=== PATIENT | female | born 1950 | race Caucasian/White ===

== ENCOUNTER 2016-07-02 23:55 | Inpatient (IN) | payer MEDICARE, OTHER ==
[2016-07-03] MEDS ORDERED: HYDROmorphone 1 MG/ML SYRINGE IVP STA (01:53)
[2016-07-03] MEDS ORDERED: ONDANSETRON 4 MG/2 ML VIAL IVP STA ×2 (01:53→08:21)
[2016-07-03] MEDS ORDERED: SODIUM CHLORIDE 0.9% 1,000 ML IV STA (01:53)
[2016-07-03] MEDS ORDERED: HYDROmorphone 1 MG/ML SYRINGE ONE ×3 (01:58→20:07)
[2016-07-03] MEDS ORDERED: ONDANSETRON 4 MG/2 ML VIAL ONE ×2 (01:58→08:24)
[2016-07-03] MEDS: HYDROmorphone 1 MG/ML SYRINGE IVP STA ×2 (03:40→20:12)
[2016-07-03] MEDS ORDERED: IOPAMIDOL-300 100 ML VIAL IVP ONE (07:43)
[2016-07-03] MEDS ORDERED: MORPHINE 2 MG/ML SYRINGE IVP STA (08:21)
[2016-07-03] MEDS ORDERED: MORPHINE 2 MG/ML SYRINGE ONE (08:24)
[2016-07-03] MEDS ORDERED: PIPERACILLIN/TAZOBACTAM 3.375 GM in SODIUM CHLORIDE 0.9% MINIBAG 100 ML IV STA (09:16)
[2016-07-03] MEDS ORDERED: LACTATED RINGERS 1,000 ML IV ONE ×4 (11:01→14:20)
[2016-07-03] MEDS ORDERED: SODIUM CHLORIDE FLUSH 0.9% 10 ML SYRINGE IVP PRN (11:03)
[2016-07-03] MEDS ORDERED: BUPIVACAINE 0.5% PF 30 ML VIAL SUBQ ONE (11:52)
[2016-07-03] MEDS ORDERED: ROPIVACAINE 0.2% PF 10 ML VIAL EPI ONE (12:00)
[2016-07-03] MEDS ORDERED: LIDOCAINE 1% 50 ML MDV SUBQ ONE (12:00)
[2016-07-03] MEDS ORDERED: ePHEDrine 50 MG/ML VIAL IVP ONE (12:00)
[2016-07-03] MEDS ORDERED: PHENYLEPHRINE 50 MG/5 ML VIAL IV ONE (12:00)
[2016-07-03] MEDS ORDERED: PROPOFOL 200 MG/20 ML VIAL IVP ONE (12:00)
[2016-07-03] MEDS ORDERED: SUCCINYLCHOLINE 200 MG/10 ML VIAL IVP ONE (12:00)
[2016-07-03] MEDS ORDERED: ONDANSETRON 4 MG/2 ML VIAL IVP ONE (12:00)
[2016-07-03] MEDS ORDERED: fentaNYL 250 MCG/5 ML VIAL IVP ONE (12:00)
[2016-07-03] MEDS ORDERED: DEXAMETHASONE 4 MG/ML VIAL IVP ONE (12:00)
[2016-07-03] MEDS ORDERED: GLYCOPYRROLATE 1 MG/5 ML VIAL IVP ONE (12:00)
[2016-07-03] MEDS ORDERED: MIDAZOLAM 2 MG/2 ML VIAL IVP ONE (12:00)
[2016-07-03] MEDS ORDERED: ROCURONIUM 50 MG/5 ML VIAL IVP ONE (12:00)
[2016-07-03] MEDS ORDERED: NEOSTIGMINE 1 MG/1 ML 10 ML MDV IVP ONE (12:00)
[2016-07-03] MEDS ORDERED: SODIUM CHLORIDE 0.9% 1,000 ML IV SCH (12:30)
[2016-07-03] MEDS ORDERED: diphenhydrAMINE INJ 50 MG/ML VIAL IV PRN (13:08)
[2016-07-03] MEDS ORDERED: METOCLOPRAMIDE 10 MG/2 ML VIAL IVP PRN (13:08)
[2016-07-03] MEDS ORDERED: ONDANSETRON 4 MG/2 ML VIAL IVP PRN (13:08)
[2016-07-03] MEDS ORDERED: NALBUPHINE 20 MG/ML AMP IVP PRN (13:08)
[2016-07-03] MEDS ORDERED: SUFENTA/BUPIV 0.4 MCG/0.0625% 150 ML EP PRN (13:08)
[2016-07-03] MEDS ORDERED: SUFENTA/BUPIV 0.4 MCG/0.0625% 150 ML EP ONE (13:34)
[2016-07-03] MEDS ORDERED: SODIUM CHLORIDE FLUSH 0.9% 10 ML SYRINGE IVP SCH (14:00)
[2016-07-03] MEDS ORDERED: A & D OINTMENT 5 GM PACKET TOP ONE (15:54)
[2016-07-03] MEDS: PHENOL THROAT SPRAY 177 ML MM PRN (18:02)
[2016-07-03] MEDS: D5NS W/20 MEQ KCL 1,000 ML IV SCH (18:08)
[2016-07-03] MEDS: PIPERACILLIN/TAZOBACTAM 3.375 GM in SODIUM CHLORIDE 0.9% MINIBAG 100 ML IV SCH ×2 (18:08→23:44)
[2016-07-03] MEDS: SODIUM CHLORIDE FLUSH 0.9% 10 ML SYRINGE IVP SCH ×2 (18:09→23:22)
[2016-07-03] MEDS: PANTOPRAZOLE 40 MG VIAL IVP SCH (18:09)
[2016-07-03] MEDS ORDERED: fentaNYL 100 MCG/2 ML VIAL ONE (20:42)
[2016-07-03] MEDS ORDERED: HYDROmorphone 1 MG/ML SYRINGE IVP SCH (21:08)
[2016-07-03] MEDS ORDERED: SODIUM CHLORIDE 0.9% 500 ML IV PRN (21:11)
[2016-07-03] MEDS ORDERED: ROPIVACAINE 0.5% PF 20 ML AMPULE EP ONE (21:20)
[2016-07-03] MEDS: ACETAMINOPHEN 1,000 MG/100 ML 100 ML IV SCH (21:20)
[2016-07-03] MEDS ORDERED: LIDOCAINE-MPF 2% 5 ML VIAL IM ONE (21:20)
[2016-07-03] MEDS ORDERED: ROPIVACAINE PO SCH (22:00)
[2016-07-03] MEDS ORDERED: FENTANYL PO SCH (22:00)
[2016-07-04] MEDS: ACETAMINOPHEN 1,000 MG/100 ML 100 ML IV SCH ×4 (02:54→21:39)
[2016-07-04] MEDS: D5NS W/20 MEQ KCL 1,000 ML IV SCH ×3 (03:02→20:41)
[2016-07-04] MEDS: SODIUM CHLORIDE FLUSH 0.9% 10 ML SYRINGE IVP SCH ×3 (06:21→21:40)
[2016-07-04] MEDS: PANTOPRAZOLE 40 MG VIAL IVP SCH (06:21)
[2016-07-04] MEDS: PIPERACILLIN/TAZOBACTAM 3.375 GM in SODIUM CHLORIDE 0.9% MINIBAG 100 ML IV SCH ×3 (06:21→19:20)
[2016-07-04] MEDS: PHENOL THROAT SPRAY 177 ML MM PRN (08:26)
[2016-07-04] MEDS ORDERED: NALBUPHINE 20 MG/ML AMP IVP PRN (10:58)
[2016-07-04] MEDS ORDERED: diphenhydrAMINE INJ 50 MG/ML VIAL IVP PRN (10:58)
[2016-07-04] MEDS: SUFENTA/ROPIV 0.5 MCG/0.2% 150 ML EP PRN (11:20)
[2016-07-04] MEDS ORDERED: SODIUM CHLORIDE 0.9% 100ML 100 ML IV ONE (19:11)
[2016-07-05] MEDS: ACETAMINOPHEN 1,000 MG/100 ML 100 ML IV SCH ×4 (02:59→20:16)
[2016-07-05] MEDS: SUFENTA/ROPIV 0.5 MCG/0.2% 150 ML EP PRN ×2 (05:27→19:31)
[2016-07-05] MEDS: D5NS W/20 MEQ KCL 1,000 ML IV SCH ×3 (05:30→23:41)
[2016-07-05] MEDS: SODIUM CHLORIDE FLUSH 0.9% 10 ML SYRINGE IVP SCH ×3 (06:13→20:17)
[2016-07-05] MEDS: PANTOPRAZOLE 40 MG VIAL IVP SCH (06:13)
[2016-07-05] MEDS: SODIUM CHLORIDE FLUSH 0.9% 10 ML SYRINGE IVP PRN (11:50)
[2016-07-06] MEDS: ACETAMINOPHEN 1,000 MG/100 ML 100 ML IV SCH ×4 (02:55→20:21)
[2016-07-06] MEDS: SODIUM CHLORIDE FLUSH 0.9% 10 ML SYRINGE IVP SCH ×3 (06:35→22:20)
[2016-07-06] MEDS: PANTOPRAZOLE 40 MG VIAL IVP SCH (06:35)
[2016-07-06] MEDS: SUFENTA/ROPIV 0.5 MCG/0.2% 150 ML EP PRN ×2 (08:41→22:07)
[2016-07-06] MEDS ORDERED: BARIUM SULFATE 176 GM BOTTLE PO ONE (10:58)
[2016-07-06] MEDS ORDERED: DIATR MEGLU/DIATRIZOATE SODIUM 120 ML BOTTLE PO ONE (10:58)
[2016-07-06] MEDS: D5NS W/20 MEQ KCL 1,000 ML IV SCH ×2 (15:56→22:20)
[2016-07-06] MEDS: ONDANSETRON 4 MG/2 ML VIAL IVP PRN (20:22)
[2016-07-07] MEDS: ACETAMINOPHEN 1,000 MG/100 ML 100 ML IV SCH ×4 (03:15→21:14)
[2016-07-07] MEDS: SODIUM CHLORIDE FLUSH 0.9% 10 ML SYRINGE IVP SCH ×3 (06:15→21:14)
[2016-07-07] MEDS: PANTOPRAZOLE 40 MG VIAL IVP SCH (06:15)
[2016-07-07] MEDS: D5NS W/20 MEQ KCL 1,000 ML IV SCH ×2 (11:07→21:13)
[2016-07-07] MEDS: SODIUM CHLORIDE FLUSH 0.9% 10 ML SYRINGE IVP PRN (12:53)
[2016-07-07] MEDS: ONDANSETRON 4 MG/2 ML VIAL IVP PRN ×2 (12:53→19:45)
[2016-07-07] MEDS ORDERED: HYDROmorphone 2 MG TABLET PO PRN (13:17)
[2016-07-07] MEDS ORDERED: HYDROmorphone 1 MG/ML SYRINGE IVP PRN (13:18)
[2016-07-07] MEDS ORDERED: MORPHINE PCA 50 MG IV PRN ×2 (14:22→16:45)
[2016-07-07] MEDS ORDERED: MORPHINE 2 MG/ML SYRINGE IVP STA (16:45)
[2016-07-07] MEDS ORDERED: MORPHINE 2 MG/ML SYRINGE IVP PRN (16:50)
[2016-07-07] MEDS ORDERED: MORPHINE 2 MG/ML SYRINGE IVP ONE (17:20)
[2016-07-08] MEDS: ONDANSETRON 4 MG/2 ML VIAL IVP PRN ×4 (02:46→22:05)
[2016-07-08] MEDS: SODIUM CHLORIDE FLUSH 0.9% 10 ML SYRINGE IVP PRN ×2 (02:46→07:23)
[2016-07-08] MEDS: ACETAMINOPHEN 1,000 MG/100 ML 100 ML IV SCH ×4 (02:50→20:55)
[2016-07-08] MEDS: SODIUM CHLORIDE FLUSH 0.9% 10 ML SYRINGE IVP SCH ×3 (05:44→21:16)
[2016-07-08] MEDS: PANTOPRAZOLE 40 MG VIAL IVP SCH (07:23)
[2016-07-08] MEDS: D5NS W/20 MEQ KCL 1,000 ML IV SCH ×2 (09:30→21:15)
[2016-07-09] MEDS: ACETAMINOPHEN 1,000 MG/100 ML 100 ML IV SCH ×4 (03:12→20:11)
[2016-07-09] MEDS: SODIUM CHLORIDE FLUSH 0.9% 10 ML SYRINGE IVP SCH ×3 (05:31→20:14)
[2016-07-09] MEDS: PANTOPRAZOLE 40 MG VIAL IVP SCH (06:17)
[2016-07-09] MEDS: D5NS W/20 MEQ KCL 1,000 ML IV SCH ×2 (08:50→14:46)
[2016-07-09] MEDS: ONDANSETRON 4 MG/2 ML VIAL IVP PRN (16:23)
[2016-07-09] MEDS: oxyCODONE ER 40 MG TABLET PO SCH (20:11)
[2016-07-10] MEDS: ACETAMINOPHEN 1,000 MG/100 ML 100 ML IV SCH ×2 (03:00→08:48)
[2016-07-10] MEDS: SODIUM CHLORIDE FLUSH 0.9% 10 ML SYRINGE IVP PRN ×3 (03:11→17:41)
[2016-07-10] MEDS: D5NS W/20 MEQ KCL 1,000 ML IV SCH ×2 (05:23→06:14)
[2016-07-10] MEDS: SODIUM CHLORIDE FLUSH 0.9% 10 ML SYRINGE IVP SCH ×3 (05:47→19:50)
[2016-07-10] MEDS: PANTOPRAZOLE 40 MG TABLET PO SCH (06:12)
[2016-07-10] MEDS: oxyCODONE ER 40 MG TABLET PO SCH ×2 (08:48→21:18)
[2016-07-10] MEDS: ACETAMINOPHEN 500 MG TABLET PO PRN ×2 (13:30→21:18)
[2016-07-10] MEDS: MORPHINE 2 MG/ML SYRINGE IVP PRN ×4 (15:24→22:43)
[2016-07-10] MEDS: ONDANSETRON 4 MG/2 ML VIAL IVP PRN (17:24)
[2016-07-10] MEDS: SIMETHICONE CHEW 80 MG TABLET PO SCH (21:57)
[2016-07-11] MEDS: MORPHINE 2 MG/ML SYRINGE IVP PRN (00:23)
[2016-07-11] MEDS: ONDANSETRON 4 MG/2 ML VIAL IVP PRN ×2 (00:23→08:22)
[2016-07-11] MEDS: SODIUM CHLORIDE FLUSH 0.9% 10 ML SYRINGE IVP PRN ×2 (00:24→08:22)
[2016-07-11] MEDS: SODIUM CHLORIDE FLUSH 0.9% 10 ML SYRINGE IVP SCH ×2 (06:12→13:47)
[2016-07-11] MEDS: PANTOPRAZOLE 40 MG TABLET PO SCH (06:12)
[2016-07-11] MEDS: oxyCODONE ER 40 MG TABLET PO SCH (08:26)
[2016-07-11] MEDS: oxyCOD/ACETAMIN 5 MG/325 MG TABLET PO PRN ×3 (08:26→09:24)
[2016-07-11] MEDS: SIMETHICONE CHEW 80 MG TABLET PO SCH ×2 (08:26→11:52)
[2016-07-11] MEDS: ACETAMINOPHEN 500 MG TABLET PO PRN (11:53)
[2016-07-11] MEDS: D5NS W/20 MEQ KCL 1,000 ML IV SCH (13:47)
== END 2016-07-11 15:01 | disposition home or self-care (01) | DRG 327 ==
PROC: 0DHA3UZ Insertion of Feeding Device into Jejunum, Percutaneous Approach (ICD-10-PCS; principal; 2016-07-03 10:00)
PROC: 0DB90ZZ Excision of Duodenum, Open Approach (ICD-10-PCS; principal; 2016-07-03 10:00)
DX: K57.00 Diverticulitis of small intestine with perforation and abscess without bleeding (principal); J98.11 Atelectasis; E03.9 Hypothyroidism, unspecified; K21.9 Gastro-esophageal reflux disease without esophagitis; K52.9 Noninfective gastroenteritis and colitis, unspecified; K59.09 Other constipation; F32.9 Major depressive disorder, single episode, unspecified; M81.0 Age-related osteoporosis without current pathological fracture

== ENCOUNTER 2016-08-08 09:35 | Emergency (ER) | payer MEDICARE, OTHER ==
[2016-08-08] MEDS ORDERED: SODIUM CHLORIDE 0.9% 1,000 ML IV ONE (09:49)
[2016-08-08] MEDS ORDERED: IOPAMIDOL-300 100 ML VIAL IVP ONE (13:31)
[2016-08-08] MEDS ORDERED: HYDROcod/ACETAM 5/325 MG TABLET PO STA (15:47)
[2016-08-08] MEDS ORDERED: HYDROcod/ACETAM 5/325 MG TABLET ONE (15:48)
== END 2016-08-08 16:00 | disposition home or self-care (01) ==
DX: K76.89 Other specified diseases of liver (principal); E03.9 Hypothyroidism, unspecified; K21.9 Gastro-esophageal reflux disease without esophagitis
CPT/HCPCS: 36415; 74177; 80053; 81003; 83690; 85025; 96360; 99284; A9270; Q9967

== ENCOUNTER 2017-01-10 11:04 | Outpatient (CLI) | payer MEDICARE, OTHER ==
[2017-01-10 19:23] LABS: BASOPHILS % (AUTO) 0.3 %; EOSINOPHILS # (AUTO) 0.1 10^3/uL (0.0-0.7); EOSINOPHILS % (AUTO) 2.2 %; HCT - HEMATOCRIT 39.8 % (37.0-47.0); HGB - HEMOGLOBIN 13.2 g/dL (12.0-16.0); LYMPHOCYTES # (AUTO) 1.3 10^3/uL (1.5-3.5); LYMPHOCYTES % (AUTO) 27.7 %; MEAN CORPUSCULAR HEMOGLOBIN 29.2 pg (27.0-31.0); MEAN CORPUSCULAR HGB CONC 33.2 g/dL (32.0-36.0); MEAN CORPUSCULAR VOLUME 88.1 fL (81.0-99.0); MEAN PLATELET VOLUME 7.8 fL (7.9-10.8); MONOCYTES # (AUTO) 0.3 10^3/uL (0.0-1.0); NEUTROPHILS # (AUTO) 2.9 10^3/uL (1.5-6.6); NEUTROPHILS % (AUTO) 62.8 %; NUCLEATED RED BLOOD CELLS AUTO 0.2 /100WBC; RED BLOOD COUNT 4.52 10^6/uL (4.20-5.40); RED CELL DISTRIBUTION WIDTH 14.5 % (12.0-15.0); UNCORRECTED WHITE BLOOD COUNT 4.6 x10^3/uL; WHITE BLOOD COUNT 4.6 x10^3/uL (4.8-10.8)
[2017-01-10 19:43] LABS: ALBUMIN/GLOBULIN RATIO 1.4 (1.0-2.2); BILIRUBIN,TOTAL 0.6 mg/dL (0.2-1.0); BUN - BLOOD UREA NITROGEN 19 mg/dL (6-20); CALCIUM 9.2 mg/dL (8.5-10.3); CARBON DIOXIDE - CO2 24 mmol/L (21-32); CHLORIDE 109 mmol/L (101-111); CHOL/HDL RATIO 3.4 (<4.4); CHOLESTEROL 243 mg/dL; CREATININE 0.6 mg/dL (0.4-1.0); GFR - MDRD 100 (>89); GLUCOSE 90 mg/dL (70-100); HDL CHOLESTEROL 72 mg/dL; LDL/HDL RATIO 2.2 (<4.4); SODIUM 139 mmol/L (135-145); TRIGLYCERIDES 53 mg/dL; VLDL CHOLESTEROL 11 mg/dL
== END 2017-01-10 11:05 ==
LOC: LAB.WCP 11:04
PROVIDERS: ATTEND Physician Assistant Medical
DX: R10.11 Right upper quadrant pain (principal); R14.0 Abdominal distension (gaseous); E78.5 Hyperlipidemia, unspecified
CPT/HCPCS: 36415; 80053; 80061; 85025

== ENCOUNTER 2017-01-15 11:08 | Outpatient (CLI) | payer MEDICARE, OTHER ==
[2017-01-15] MEDS ORDERED: IOPAMIDOL-300 100 ML VIAL ONE (11:31)
[2017-01-15] MEDS ORDERED: IOPAMIDOL-300 50 ML VIAL ONE (11:31)
[2017-01-15] MEDS ORDERED: IOPAMIDOL-300 50 ML VIAL PO ONE (12:36)
[2017-01-15] MEDS ORDERED: IOPAMIDOL-300 100 ML VIAL IVP ONE (12:36)
--- NOTE | 2017-01-15 18:05 | CT Report ---
CT ABDOMEN AND PELVIS WITH CONTRAST: CLINICAL INDICATION: Pain. Axial CT images of the abdomen and pelvis were obtained with 100 mL Isovue-300 intravenously as well as oral contrast. In accordance with CT protocol optimization, one or more of the following dose reduction techniques w ere utilized for this exam: automated exposure control, adjustment of mA and/or KV based on patient size, or use of iterative reconstructive technique. COMPARISON: 08/08/2016 Limited evaluation of the lung bases demonstrates mild atelectasis. ABDOMEN: Hepatic cysts are stable. Renal cysts are stable. The spleen, pancreas and adrenal glands are unremarkable. The gallbladder is not dilated. No bowel dilatation, free gas, or free fluid is present. No abdominal adenopathy is seen. PELVIS: There is a periumbilical hernia present, containing fat, without evidence of bowel herniatio n. No pelvic adenopathy or free fluid is present. Osseous structures demonstrate degenerative changes. IMPRESSION: PERIUMBILICAL HERNIA, CONTAINING FAT, WITHOUT EVIDENCE OF BOWEL HERNIATION. STABLE HEPA TIC AND RENAL CYSTS. JOB #: [id number] EXT JOB #:[id number]
== END 2017-01-15 11:09 | disposition home or self-care (01) ==
LOC: DI 11:08
PROVIDERS: ATTEND Physician Assistant Medical
DX: K42.9 Umbilical hernia without obstruction or gangrene (principal); K76.89 Other specified diseases of liver; Q61.02 Congenital multiple renal cysts
CPT/HCPCS: 74177; Q9967

== ENCOUNTER 2017-04-09 07:34 | Day surgery (SDC) | payer MEDICARE, OTHER ==
[~2017-04-09 07:34] MED LIST: LACTATED RINGERS 1,000 ML IV ONE; ceFAZolin 2 GM/50 ML 2 GM/50 ML BAG IV ONE
[2017-04-09] MEDS ORDERED: BUPIVACAINE 0.5% PF 30 ML VIAL INFIL ONE (09:05)
[2017-04-09] MEDS ORDERED: PROPOFOL 200 MG/20 ML VIAL IVP ONE (09:20)
[2017-04-09] MEDS ORDERED: fentaNYL 100 MCG/2 ML VIAL IVP ONE (09:20)
[2017-04-09] MEDS ORDERED: KETOROLAC 30 MG/ML VIAL IVP ONE (09:20)
[2017-04-09] MEDS ORDERED: LIDOCAINE-MPF 2% 5 ML VIAL IM ONE (09:20)
[2017-04-09] MEDS ORDERED: GLYCOPYRROLATE 1 MG/5 ML VIAL IVP ONE (09:20)
[2017-04-09] MEDS ORDERED: NEOSTIGMINE 1 MG/1 ML 10 ML MDV IVP ONE (09:20)
[2017-04-09] MEDS ORDERED: ROCURONIUM 50 MG/5 ML VIAL IVP ONE (09:20)
[2017-04-09] MEDS ORDERED: LACTATED RINGERS 1,000 ML IV ONE (10:09)
--- NOTE | 2017-04-09 10:15 | OPERATIVE REPORT ---
Operative Report - General Procedure Date: 04/09/17 Planned Procedure: Incisional herniorrhaphy Pre-Op Diagnosis: Incisional hernia Procedure Performed: Incisional herniorrhaphy with mesh (Ventralex ST Hernia Patch, ref#[id number], lot# [id number], use by date 2019-03-05) Post Op Diagnosis: Incisional hernia - Procedure Note Primary Surgeon: Shabbir Sosa MD Anesthesia Provider: Shabbir Max MD Anesthesia Technique: General ET tube, Local (30 mL 1/2% marcaine) IV Fluids (mL): 600 Estimated Blood Loss (mL): 5 Complications: None. - Other Other Information/Narrative: OPERATIVE DESCRIPTION/REPORT: After verbal and written informed consent was obtained detailing the risks of infection, bleeding requiring transfusion with its risks, nerve injury, and , and after I met with the patient confirming the surgery and the site of the surgery, the patient was brought to the operative suite and placed supine on the operating table. Great care was taken to avoid pressure points to prevent pressure necrosis or nerve injury. Monitoring devices were applied along with TEDs and pneumatic compressive stockings (to prevent DVT). The patient received preoperative antibiotics for surgical prophylaxis. Dr. Shabbir Max sedated and anesthetized the patient for the entire procedure. The patient was prepped and draped in the usual sterile manner. With the patient draped my initials were clearly visible. A "time in" then confirmed that the patient was identified with 3 identifiers (name, date and medical record number), the history and physical was in the chart, the signed consent confirming the procedure was in the chart, the patient was in the correct position, the aforementioned prophylactic measures were in place or given, we had the correct personnel and equipment to complete the procedure and that anesthesia, surgery and nursing were given an opportunity to express any concerns. With the agreement of everyone in the room, we proceeded with the operation. A vertical midline incision tracing the lower portion of the incision was made overlying the mass and dissection was carried down to the hernia sac using a combination of Metzenbaum scissors, scalpel, and Bovie electrocautery. The sac was cleared of overlying adherent tissue, and the fascial defect was delineated. The fascia was cleared of any adherent tissue for a distance 1.5 cm from the defect. The sac was resected using a combination of Metzenbaum scissors and Bovie electrocautery. The defect was closed using Ventralex ST hernia patch (see above for details) sewing it in place using interrupted 2-0 PDS. The fascia was then sewn over the mesh using 2-0 Vicryl. The subcutaneous tissues were copiously irrigated, and then closed using an interrupted 2-0 Vicryl. Meticulous hemostasis was obtained using Bovie electrocautery. The skin incision was approximated with a running 4-0 Monocryl. At this point a time out was performed that confirmed that all the counts were correct, the procedure that was performed, the blood loss, the IV fluids administered, and the patient s condition. Having tolerated the procedure well, the patient was subsequently extubated and taken to recovery room in good and stable condition.
[2017-04-09] MEDS ORDERED: ONDANSETRON 4 MG/2 ML VIAL ONE (10:22)
[2017-04-09] MEDS ORDERED: oxyCOD/ACETAMIN 5 MG/325 MG TABLET PO ONE (12:26)
[2017-04-09 13:40] VITALS: BP 122/85
== END 2017-04-09 07:35 | disposition home or self-care (01) ==
LOC: SDS 07:34
PROVIDERS: ATTEND Surgery
PROC: 0WUF0JZ Supplement Abdominal Wall with Synthetic Substitute, Open Approach (ICD-10-PCS; principal; 2017-04-09 08:30)
DX: K43.2 Incisional hernia without obstruction or gangrene (principal)
CPT/HCPCS: 49560; 49568; A9270; C1781; J0690; J7120

== ENCOUNTER 2017-10-15 13:00 | Outpatient (CLI) | payer MEDICARE, OTHER ==
[2017-10-15 10:39] LABS: BASOPHILS % (AUTO) 0.4 %; EOSINOPHILS # (AUTO) 0.1 10^3/uL (0.0-0.7); EOSINOPHILS % (AUTO) 2.2 %; HGB - HEMOGLOBIN 14.2 g/dL (12.0-16.0); LYMPHOCYTES # (AUTO) 1.1 10^3/uL (1.5-3.5); LYMPHOCYTES % (AUTO) 24.2 %; MEAN CORPUSCULAR HEMOGLOBIN 29.7 pg (27.0-31.0); MEAN CORPUSCULAR HGB CONC 33.1 g/dL (32.0-36.0); MEAN CORPUSCULAR VOLUME 89.9 fL (81.0-99.0); MEAN PLATELET VOLUME 7.3 fL (7.9-10.8); MONOCYTES # (AUTO) 0.3 10^3/uL (0.0-1.0); MONOCYTES % (AUTO) 7.1 %; NEUTROPHILS % (AUTO) 66.1 %; PLT - PLATELET COUNT 186 10^3/uL (130-450); RED BLOOD COUNT 4.77 10^6/uL (4.20-5.40); RED CELL DISTRIBUTION WIDTH 13.9 % (12.0-15.0); WHITE BLOOD COUNT 4.5 x10^3/uL (4.8-10.8)
[2017-10-15 10:57] LABS: ALBUMIN/GLOBULIN RATIO 1.3 (1.0-2.2); ALKALINE PHOSPHATASE 85 IU/L (42-121); ALT ALANINE AMINOTRANSFERASE 20 IU/L (10-60); AST ASPARTATE AMINOTRANSFERASE 19 IU/L (10-42); BILIRUBIN,TOTAL 0.6 mg/dL (0.2-1.0); BUN - BLOOD UREA NITROGEN 16 mg/dL (6-20); CALCIUM 9.6 mg/dL (8.5-10.3); CARBON DIOXIDE - CO2 26 mmol/L (21-32); CHLORIDE 106 mmol/L (101-111); CHOL/HDL RATIO 3.1 (<4.4); CHOLESTEROL 230 mg/dL; CREATININE 0.7 mg/dL (0.4-1.0); GFR - MDRD 83 (>89); GLUCOSE 96 mg/dL (70-100); HDL CHOLESTEROL 75 mg/dL; LDL CHOLESTEROL,CALCULATED 134 mg/dL; LDL/HDL RATIO 1.8 (<4.4); SODIUM 139 mmol/L (135-145); TOTAL PROTEIN 7.2 g/dL (6.7-8.2); VLDL CHOLESTEROL 21 mg/dL
[2017-10-15 11:25] LABS: FREE T4 (FREE THYROXINE) 0.77 ng/dL (0.58-1.64)
== END 2017-10-15 13:01 | disposition home or self-care (01) ==
LOC: DI 13:00
PROVIDERS: ATTEND Physician Assistant
DX: E78.5 Hyperlipidemia, unspecified (principal); E03.9 Hypothyroidism, unspecified; R06.09 Other forms of dyspnea; Z86.39 Personal history of other endocrine, nutritional and metabolic disease; Z51.81 Encounter for therapeutic drug level monitoring
CPT/HCPCS: 36415; 80053; 80061; 83721; 84439; 84443; 85025; 93306

== ENCOUNTER 2017-11-07 15:47 | Outpatient (CLI) | payer MEDICARE, OTHER ==
--- NOTE | 2017-11-08 12:04 | Ultrasound Report ---
Procedure Date: 11/07/2017 Accession Number: [id number] / [id number] Procedure: US - Head or Neck Soft Tissue CPT Code: FULL RESULT: EXAM: Head or Neck Soft Tissue DATE: 11/07/2017 4:25 PM CLINICAL HISTORY: EXERTIONAL SHORTNESS OF BREATH,HX OF THYROID NODUL COMPARISON: 06/27/2013. TECHNIQUE: Real time sonographic imaging of the thyroid was performed by the schedule planning manager. Multiple tour sales representative static images were saved for review. FINDINGS: THYROID GLAND: Right Lobe: 3.9 x 1.9 x 1.3 cm. Normal background echotexture. Right Lobe Nodules: Predominantly solid 1.0 x 0.9 x 0.7 cm superiorly (previously 0.9 x 0.6 x 0.5 cm), vascular by color Doppler. Mid right thyroid 1.0 x 1.0 x 0.8 cm cystic and solid nodule with vascularity by color Doppler (previously 1.2 x 0.6 x 1.0 cm). Left Lobe: 4.0 x 1.5 x 1.4 cm. Normal background echotexture. Left Lobe Nodules: Solid heterogeneous 1.1 x 1.1 x 0.7 cm midpole nodule (previously 1.0 x 0.8 x 0.6 cm), 0.6 x 0.6 x 0.7 cm inferior pole hypoechoic and heterogeneous nodule (previously 0.6 x 0.6 x 0.7 cm) and 1.0 x 0.8 x 0.5 cm hypoechoic predominantly solid upper pole nodule with vascularity on color Doppler (previously 0.7 x 0.4 x 0.7 cm). Isthmus: 0.3 cm AP. Isthmic Nodules: None. LYMPH NODES: No adenopathy demonstrated in the central or lateral compartment. OTHER: None. IMPRESSION: 1. Slight interval enlargement of bilateral nodules measuring less than 1.5 cm with low suspicion by sonographic features. Management recommendation is FNA of the largest thyroid nodule on each side. Management recommendations are based on 2015 [place] [employer] Management Guidelines for Adult Patients with Thyroid Nodules and Differentiated Thyroid Cancer. RADIA
== END 2017-11-07 15:48 | disposition home or self-care (01) ==
LOC: DI 15:47
PROVIDERS: ATTEND Physician Assistant
DX: E04.1 Nontoxic single thyroid nodule (principal); Z86.39 Personal history of other endocrine, nutritional and metabolic disease
CPT/HCPCS: 76536

== ENCOUNTER 2018-01-17 12:33 | Outpatient (CLI) | payer MEDICARE, OTHER ==
--- NOTE | 2018-01-17 16:22 | Ultrasound Report ---
Reason: MULTIPLE THYROID NODULES Procedure Date: 01/17/2018 Accession Number: [id number] / [id number] Procedure: US - Fine Needle Aspiration CPT Code: FULL RESULT: PROCEDURE: ULTRASOUND GUIDED FNA BIOPSY PREOPERATIVE DIAGNOSIS: Multiple thyroid nodules, possibly malignant. POSTOPERATIVE DIAGNOSIS: Same TECHNIQUE: Following written and oral informed consent including procedure risks and alternatives, the patient was brought to the ultrasound suite and positioned. Using local anesthesia, sterile technique, and direct ultrasound control, FNA needles were advanced into the dominant left thyroid nodules as well as the largest solid right upper pole nodule and the dominant cystic partially solid right lower pole nodule. A total of 10 fine-needle aspirates were obtained, 4 on the left and 3 each on the right. The patient tolerated the procedure well and there were no immediate complications. ANESTHESIA: Local only. TERMITE CONTROL SERVICE REPRESENTATIVE: Dr Patel. ESTIMATED BLOOD LOSS: Minimal. FLUOROSCOPY TIME: None. COMPLICATIONS: None. CONDITION: Good. SPECIMEN: Fine-needle aspirates of 3 discrete lesions. IMPLANTS: None. FINDINGS: Real-time ultrasound performed with static images saved to the PACS demonstrating the needle directed into the thyroid nodules. IMPRESSION: Uncomplicated ultrasound guided biopsy as described. Pathology results will be reported separately. RADIA
[2018-01-17] MEDS: BUFFERED LIDOCAINE 10 ML SYRINGE IU ONE ×2 (17:04→17:05)
== END 2018-01-17 12:34 | disposition home or self-care (01) ==
LOC: DI 12:33
PROVIDERS: ATTEND Surgery
DX: E04.2 Nontoxic multinodular goiter (principal)
CPT/HCPCS: 10022

== ENCOUNTER 2018-03-03 08:20 | Outpatient (CLI) | payer MEDICARE, OTHER ==
--- NOTE | 2018-03-03 10:14 | Ultrasound Report ---
Reason: INCISIONAL HERNIA,ABDOMINAL Procedure Date: 03/03/2018 Accession Number: [id number] / [id number] Procedure: US - Abdomen Limited CPT Code: FULL RESULT: EXAM: ABDOMEN ULTRASOUND LIMITED EXAM DATE: 03/03/2018 08:37 AM. CLINICAL HISTORY: Incisional hernia, abdominal. COMPARISON: Abdomen limited 07/03/2016 2:54 AM. TECHNIQUE: Real-time scanning was performed with static images obtained. FINDINGS: Focused ultrasound in the region of a previously repaired incisional hernia is performed in the area symptomatic to the patient. An omentum-containing only partially reducible hernia with 0.7 cm neck and 0.5 x 1.6 cm protruding hypoechoic omentum is demonstrated. IMPRESSION: Partially reducible omentum-containing hernia. RADIA
== END 2018-03-03 08:21 | disposition home or self-care (01) ==
LOC: DI 08:20
PROVIDERS: ATTEND Physician Assistant
DX: K43.2 Incisional hernia without obstruction or gangrene (principal)
CPT/HCPCS: 76705

== ENCOUNTER 2018-11-02 10:25 | Outpatient (CLI) | payer MEDICARE, OTHER ==
[2018-11-02 11:09] LABS: BASOPHILS % (AUTO) 0.5 %; EOSINOPHILS # (AUTO) 0.2 10^3/uL (0.0-0.7); EOSINOPHILS % (AUTO) 4.4 %; HGB - HEMOGLOBIN 13.8 g/dL (12.0-16.0); LYMPHOCYTES # (AUTO) 0.9 10^3/uL (1.5-3.5); MEAN CORPUSCULAR HEMOGLOBIN 29.9 pg (27.0-31.0); MEAN CORPUSCULAR HGB CONC 33.3 g/dL (32.0-36.0); MEAN PLATELET VOLUME 9.4 fL (7.9-10.8); MONOCYTES # (AUTO) 0.3 10^3/uL (0.0-1.0); MONOCYTES % (AUTO) 7.3 %; NEUTROPHILS # (AUTO) 2.4 10^3/uL (1.5-6.6); NEUTROPHILS % (AUTO) 63.5 %; PLT - PLATELET COUNT 190 10^3/uL (130-450); RED BLOOD COUNT 4.61 10^6/uL (4.20-5.40); RED CELL DISTRIBUTION WIDTH 13.2 % (12.0-15.0); WHITE BLOOD COUNT 3.8 x10^3/uL (4.8-10.8)
[2018-11-02 11:24] LABS: ALBUMIN/GLOBULIN RATIO 1.4 (1.0-2.2); ALKALINE PHOSPHATASE 96 IU/L (42-121); ALT ALANINE AMINOTRANSFERASE 19 IU/L (10-60); AST ASPARTATE AMINOTRANSFERASE 21 IU/L (10-42); BILIRUBIN,TOTAL 0.5 mg/dL (0.2-1.0); BUN - BLOOD UREA NITROGEN 16 mg/dL (6-20); CALCIUM 9.9 mg/dL (8.5-10.3); CARBON DIOXIDE - CO2 25 mmol/L (21-32); CHLORIDE 105 mmol/L (101-111); CHOLESTEROL 222 mg/dL; CREATININE 0.7 mg/dL (0.4-1.0); GFR - MDRD 83 (>89); GLUCOSE 102 mg/dL (70-100); HDL CHOLESTEROL 75 mg/dL; LDL CHOLESTEROL,CALCULATED 137 mg/dL; LDL/HDL RATIO 1.8 (<4.4); SODIUM 142 mmol/L (135-145); TOTAL PROTEIN 6.9 g/dL (6.7-8.2); VLDL CHOLESTEROL 10 mg/dL
== END 2018-11-02 10:26 | disposition home or self-care (01) ==
LOC: LAB 10:25
PROVIDERS: ATTEND Physician Assistant
DX: D72.819 Decreased white blood cell count, unspecified (principal); E03.9 Hypothyroidism, unspecified; K21.9 Gastro-esophageal reflux disease without esophagitis; E78.5 Hyperlipidemia, unspecified
CPT/HCPCS: 36415; 80053; 80061; 83721; 84443; 85025

== ENCOUNTER 2019-01-26 16:00 | Emergency (ER) | payer MEDICARE, OTHER ==
--- NOTE | 2019-01-26 16:53 | ED Physician Documentation ---
PD HPI ABD PAIN - Stated complaint Stated Complaint: BLOOD IN STOOL - Chief complaint Chief Complaint: Abd Pain - History obtained from History obtained from: Patient - History of Present Illness Timing - onset: Today (68-year-old woman with history of ruptured diverticulitis presents with diarrhea starting last night and now bloody and mucousy stool today. She is had cramps but no significant pain. No nausea. No recent foreign travel. No fevers. No suspect foods. No recent antibiotics.) Review of Systems Ten Systems: 10 systems reviewed and negative Constitutional: denies: Fever, Chills GI: reports: Diarrhea. denies: Abdominal Swelling, Nausea, Vomiting, Constipation PD PAST MEDICAL HISTORY - Past Medical History Past Medical History: Yes Cardiovascular: High cholesterol Respiratory: None, Asthma Neuro: None Endocrine/Autoimmune: HyPERthyroidism, HyPOthyroidism GI: GERD, Hiatal hernia, Colon polyps, Chronic diarrhea, Chronic constipation, Diverticulitis CHANGE LEAD: None : None HEENT: Chronic vision loss, Chronic sinusitis Psych: Depression Musculoskeletal: Osteoporosis, Chronic back pain Derm: None - Past Surgical History Past Surgical History: Yes General: Appendectomy, Bowel surgery /CHANGE LEAD: Other HEENT: Tonsil/Adenoidectomy - Present Medications Home Medications: Ambulatory Orders Medication Instructions Recorded Confirmed Hyoscyamine [Levsin] 0.25 mg SL QPM PRN 01/10/16 04/09/17 Cyclobenzaprine HCl 5 - 10 mg PO TID PRN 07/03/16 04/09/17 Omeprazole [PriLOSEC] 20 mg PO QDAC 07/03/16 04/09/17 Hydrocodone/Acetaminophen [Vicodin 1 tab ORAL DAILY PRN 08/08/16 04/04/17 5-300 mg Tablet] Sertraline HCl [Zoloft] 100 mg ORAL DAILY 08/08/16 04/09/17 Fiber Gummy 1 tab PO DAILY 04/04/17 Ciprofloxacin HCl [Cipro] 500 mg PO BID #14 tablet 01/26/19 Metronidazole 500 mg PO TID #21 tablet 01/26/19 Promethazine [Phenergan] 25 mg PO Q6H PRN #10 tab 01/26/19 - Allergies Allergies/Adverse Reactions: Allergies Allergy/AdvReac Type Severity Reaction Status Date / Time No Known Drug Allergies Allergy Verified 04/04/17 16:12 - Social History Does the pt smoke?: No Smoking Status: Never smoker Does the pt drink ETOH?: Yes Does the pt have substance abuse?: No - Immunizations Immunizations are current?: Yes - POLST Patient has POLST: No PD ED PE NORMAL - Vitals Vital signs reviewed: Yes - General General: Alert and oriented X 3, No acute distress - Abdomen Abdomen: Normal bowel sounds, Soft, Non tender - Neuro Neuro: Alert and oriented X 3, Normal speech - Psych Psych: Normal mood, Normal affect Results - Vitals Vitals: Vital Signs - 24 hr 01/26/19 16:06 Heart Rate 77 Respiratory 18 Rate Blood Pressure 115/73 O2 Saturation 98 Oxygen O2 Source Room air - Labs Labs: Laboratory Tests 01/26/19 01/26/19 01/26/19 16:55 16:55 17:02 WBC 7.4 RBC 4.54 Hgb 13.6 Hct 41.3 MCV 91.0 MCH 30.0 MCHC 32.9 RDW 13.2 Plt Count 175 MPV 9.2 Neut # (Auto) 6.2 Lymph # (Auto) 0.7 L [place] # (Auto) 0.5 Eos # (Auto) 0.0 Baso # (Auto) 0.0 Absolute Nucleated RBC 0.00 Nucleated RBC % 0.0 Sodium 142 Potassium 3.6 Chloride 105 Carbon Dioxide 26 Anion Gap 11.0 BUN 18 Creatinine 0.7 Estimated GFR (MDRD) 83 L Glucose 117 H Calcium 9.3 Total Bilirubin 0.7 AST 18 ALT 17 Alkaline Phosphatase 77 Total Protein 6.7 Albumin 4.2 Globulin 2.5 Albumin/Globulin Ratio 1.7 Lipase 32 Stool Leukocytes, Qual POSITIVE PD MEDICAL DECISION MAKING - ED course ED course: 68-year-old woman with signs and symptoms of colitis. We discussed CT scanning on initial evaluation and she declined at least initially which is not unreasonable given the lack of significant pain or tenderness. Departure - Departure Disposition: 01 Home, Self Care Clinical Impression: Colitis Condition: Good Record reviewed to determine appropriate education?: Yes Instructions: ED Gastroenteritis Bacterial Follow-Up: Shabbir Sosa MD [Provider Admit Priv/Credential] - Prescriptions: Ciprofloxacin HCl [Cipro] 500 mg PO BID #14 tablet Metronidazole 500 mg PO TID #21 tablet Promethazine [Phenergan] 25 mg PO Q6H PRN #10 tab PRN Reason: Nausea / Vomiting Comments: Return if worse any time or if not better in the next 2 days. If you have not had a recent colonoscopy you will need one in 8 weeks in follow-up. You can see Dr. Sosa for that.
[2019-01-26 17:08] LABS: BASOPHILS % (AUTO) 0.1 %; EOSINOPHILS % (AUTO) 0.4 %; HGB - HEMOGLOBIN 13.6 g/dL (12.0-16.0); LYMPHOCYTES # (AUTO) 0.7 10^3/uL (1.5-3.5); LYMPHOCYTES % (AUTO) 9.2 %; MEAN CORPUSCULAR HGB CONC 32.9 g/dL (32.0-36.0); MEAN PLATELET VOLUME 9.2 fL (7.9-10.8); MONOCYTES # (AUTO) 0.5 10^3/uL (0.0-1.0); MONOCYTES % (AUTO) 6.6 %; NEUTROPHILS # (AUTO) 6.2 10^3/uL (1.5-6.6); NEUTROPHILS % (AUTO) 83.4 %; PLT - PLATELET COUNT 175 10^3/uL (130-450); RED BLOOD COUNT 4.54 10^6/uL (4.20-5.40); RED CELL DISTRIBUTION WIDTH 13.2 % (12.0-15.0); WHITE BLOOD COUNT 7.4 x10^3/uL (4.8-10.8)
[2019-01-26 17:21] LABS: ALBUMIN 4.2 g/dL (3.2-5.5); ALBUMIN/GLOBULIN RATIO 1.7 (1.0-2.2); BILIRUBIN,TOTAL 0.7 mg/dL (0.2-1.0); CALCIUM 9.3 mg/dL (8.5-10.3); CREATININE 0.7 mg/dL (0.4-1.0); TOTAL PROTEIN 6.7 g/dL (6.7-8.2)
[2019-01-26] MEDS ORDERED: CIPROFLOXACIN 250 MG TABLET PO STA (17:43)
[2019-01-26] MEDS ORDERED: metroNIDAZOLE 250 MG TABLET PO STA (17:43)
[2019-01-26] MEDS ORDERED: METOCLOPRAMIDE 10 MG TABLET PO STA (17:43)
[2019-01-26 17:49] VITALS: BP 115/76
== END 2019-01-26 17:59 | disposition home or self-care (01) ==
LOC: ED 16:00
DX: K52.9 Noninfective gastroenteritis and colitis, unspecified (principal); Z87.19 Personal history of other diseases of the digestive system; Z86.010 Personal history of colon polyps
CPT/HCPCS: 36415; 80053; 83630; 83690; 85025; 87045; 87046; 99283; A9270

== ENCOUNTER 2019-01-27 12:52 | Emergency (ER) | payer MEDICARE, OTHER ==
[2019-01-27 13:21] LABS: BASOPHILS % (AUTO) 0.2 %; EOSINOPHILS % (AUTO) 0.3 %; HGB - HEMOGLOBIN 14.4 g/dL (12.0-16.0); LYMPHOCYTES % (AUTO) 11.4 %; MEAN CORPUSCULAR HEMOGLOBIN 29.8 pg (27.0-31.0); MEAN CORPUSCULAR HGB CONC 32.6 g/dL (32.0-36.0); MEAN CORPUSCULAR VOLUME 91.3 fL (81.0-99.0); MEAN PLATELET VOLUME 8.9 fL (7.9-10.8); MONOCYTES # (AUTO) 0.6 10^3/uL (0.0-1.0); MONOCYTES % (AUTO) 6.4 %; NEUTROPHILS # (AUTO) 7.1 10^3/uL (1.5-6.6); NEUTROPHILS % (AUTO) 81.2 %; PLT - PLATELET COUNT 187 10^3/uL (130-450); RED BLOOD COUNT 4.84 10^6/uL (4.20-5.40); RED CELL DISTRIBUTION WIDTH 13.3 % (12.0-15.0); WHITE BLOOD COUNT 8.8 x10^3/uL (4.8-10.8)
[2019-01-27 13:37] LABS: ALBUMIN 4.2 g/dL (3.2-5.5); ALBUMIN/GLOBULIN RATIO 1.4 (1.0-2.2); BILIRUBIN,TOTAL 0.8 mg/dL (0.2-1.0); CALCIUM 9.5 mg/dL (8.5-10.3); CREATININE 0.9 mg/dL (0.4-1.0); TOTAL PROTEIN 7.1 g/dL (6.7-8.2)
[2019-01-27] MEDS ORDERED: MORPHINE 2 MG/ML CARPUJECT IVP STA (14:04)
[2019-01-27] MEDS ORDERED: MAG HYDROX/AL HYDROX/SIMETH 30 ML UDC PO STA (14:05)
--- NOTE | 2019-01-27 14:08 | ED Physician Documentation ---
PD HPI ABD PAIN - Stated complaint Stated Complaint: ABD PX - Chief complaint Chief Complaint: Abd Pain - History obtained from History obtained from: Patient - History of Present Illness Timing - onset: Other (I saw her yesterday for apparent colitis. Some bloody mucousy stool without pain or fever. The blood has decreased significantly but starting last night she has had left lower quadrant pain. She does have a history of perforated diverticulitis.) Review of Systems Ten Systems: 10 systems reviewed and negative Constitutional: denies: Fever, Chills GI: reports: Abdominal Pain, Nausea, Diarrhea, Bloody / black stool. denies: Vomiting : denies: Dysuria, Frequency PD PAST MEDICAL HISTORY - Past Medical History Cardiovascular: High cholesterol Respiratory: None, Asthma Neuro: None Endocrine/Autoimmune: HyPERthyroidism, HyPOthyroidism GI: GERD, Hiatal hernia, Colon polyps, Chronic diarrhea, Chronic constipation, Diverticulitis REFRIGERATOR CABINETMAKER: None : None HEENT: Chronic vision loss, Chronic sinusitis Psych: Depression Musculoskeletal: Osteoporosis, Chronic back pain Derm: None - Past Surgical History Past Surgical History: Yes General: Appendectomy, Bowel surgery /REFRIGERATOR CABINETMAKER: Other HEENT: Tonsil/Adenoidectomy - Present Medications Home Medications: Ambulatory Orders Medication Instructions Recorded Confirmed Hyoscyamine [Levsin] 0.25 mg SL QPM PRN 01/10/16 04/09/17 Cyclobenzaprine HCl 5 - 10 mg PO TID PRN 07/03/16 04/09/17 Omeprazole [PriLOSEC] 20 mg PO QDAC 07/03/16 04/09/17 Hydrocodone/Acetaminophen [Vicodin 1 tab ORAL DAILY PRN 08/08/16 04/04/17 5-300 mg Tablet] Sertraline HCl [Zoloft] 100 mg ORAL DAILY 08/08/16 04/09/17 Fiber Gummy 1 tab PO DAILY 04/04/17 Ciprofloxacin HCl [Cipro] 500 mg PO BID #14 tablet 01/26/19 Metronidazole 500 mg PO TID #21 tablet 01/26/19 Promethazine [Phenergan] 25 mg PO Q6H PRN #10 tab 01/26/19 Hydrocodone/Acetaminophen 1 - 2 each PO Q6H PRN #14 tablet 01/27/19 [Hydrocodon-Acetaminophen 5-325] - Allergies Allergies/Adverse Reactions: Allergies Allergy/AdvReac Type Severity Reaction Status Date / Time No Known Drug Allergies Allergy Verified 01/27/19 12:54 - Social History Does the pt smoke?: No Smoking Status: Never smoker Does the pt drink ETOH?: Yes Does the pt have substance abuse?: No - Immunizations Immunizations are current?: Yes - POLST Patient has POLST: No PD ED PE NORMAL - Vitals Vital signs reviewed: Yes - General General: Alert and oriented X 3, No acute distress - HEENT HEENT: PERRL, EOMI - Neck Neck: Supple, no meningeal sign, No bony TTP - Cardiac Cardiac: RRR, No murmur - Respiratory Respiratory: No respiratory distress, Clear bilaterally - Abdomen Abdomen: Normal bowel sounds, Soft, Other (Modest tenderness in the left lower quadrant with mild rebound tenderness.) - Back Back: No CVA TTP, No spinal TTP - Derm Derm: Normal color, Warm and dry - Extremities Extremities: No edema, No calf tenderness / cord - Neuro Neuro: Alert and oriented X 3, Normal speech Results - Vitals Vitals: Vital Signs - 24 hr 01/27/19 12:54 Temperature 36.5 C Heart Rate 96 Respiratory 18 Rate Blood Pressure 136/85 H O2 Saturation 99 Oxygen O2 Source Room air - Labs Labs: Laboratory Tests 01/27/19 01/27/19 13:13 13:13 WBC 8.8 RBC 4.84 Hgb 14.4 Hct 44.2 MCV 91.3 MCH 29.8 MCHC 32.6 RDW 13.3 Plt Count 187 MPV 8.9 Neut # (Auto) 7.1 H Lymph # (Auto) 1.0 L [place] # (Auto) 0.6 Eos # (Auto) 0.0 Baso # (Auto) 0.0 Absolute Nucleated RBC 0.00 Nucleated RBC % 0.0 Sodium 141 Potassium 3.6 Chloride 104 Carbon Dioxide 27 Anion Gap 10.0 BUN 14 Creatinine 0.9 Estimated GFR (MDRD) 62 L Glucose 123 H Calcium 9.5 Total Bilirubin 0.8 AST 18 ALT 18 Alkaline Phosphatase 80 Total Protein 7.1 Albumin 4.2 Globulin 2.9 Albumin/Globulin Ratio 1.4 Lipase 29 - Rads (name of study) CT A/P Radiology: EMP read contemporaneously (Consistent with colitis with a small amount of free fluid in the pelvis. No other complicating findings.) PD MEDICAL DECISION MAKING - ED course ED course: 68-year-old woman seen yesterday, diagnosed this, now with more pain. She has had complicated diverticulitis before and has concern for that, but the CT today shows that yesterday's diagnosis was correct and she is to continue the plan of care. Departure - Departure Disposition: 01 Home, Self Care Clinical Impression: Colitis Condition: Good Record reviewed to determine appropriate education?: Yes Instructions: ED Gastroenteritis Bacterial Follow-Up: Shabbir Sosa MD [Provider Admit Priv/Credential] - Prescriptions: Hydrocodone/Acetaminophen [Hydrocodon-Acetaminophen 5-325] 1 - 2 each PO Q6H PRN #14 tablet PRN Reason: pain Comments: As discussed yesterday, you will need a follow-up colonoscopy in approximately 8 weeks. Continue the antibiotics prescribed yesterday. Return for new or worsening symptoms.
[2019-01-27] MEDS ORDERED: IOVERSOL 320 100 ML VIAL IVP ONE ×2 (14:19→14:40)
--- NOTE | 2019-01-27 15:04 | CT Report ---
Reason: IV only, LLQ pain Procedure Date: 01/27/2019 Accession Number: [id number] / [id number] Procedure: CT - Abdomen/Pelvis W CPT Code: FULL RESULT: EXAM: CT ABDOMEN AND PELVIS EXAM DATE: 01/27/2019 02:38 PM. CLINICAL HISTORY: IV only, LLQ pain. COMPARISONS: ABDOMEN/PELVIS W/ 01/15/2017 12:23 PM. TECHNIQUE: Routine helical CT imaging was performed through the abdomen and pelvis. IV contrast: OPTI 320 90ML. Enteric contrast: No. Reconstructions: Coronal and sagittal. In accordance with CT protocol optimization, one or more of the following dose reduction techniques were utilized for this exam: automated exposure control, adjustment of mA and/or KV based on patient size, or use of iterative reconstructive technique. FINDINGS: Lung Bases: Unremarkable. Liver: There are 4 rounded hypodense structures in the liver measuring up to 1.7 cm which measure simple fluid in attenuation. The smaller hypodense structures are too small to adequately characterize but may also represent simple cysts. Gallbladder/Bile Ducts: Unremarkable. Spleen: Normal. Pancreas: Normal. Adrenal Glands: Normal. Kidneys: Normal. No masses or hydronephrosis. Peritoneal Cavity/Bowel: See her comfort is bowel wall thickening with adjacent fat stranding extending from the mid descending colon to the mid sigmoid colon. Small amount of free fluid in the pelvis. No abscess. The appendix is well visualized and normal. Pelvic Organs: Normal. The bladder and visualized pelvic organs are within normal limits. Vasculature: No aneurysms or other significant abnormality. Bones: No significant abnormality. Other: None. IMPRESSION: 1. Circumferential bowel wall thickening from the mid descending colon to the mid sigmoid colon with adjacent fat stranding can be seen in the setting of inflammatory or infectious colitis. 2. Small amount of free fluid in the pelvis. No abscess. RADIA
[2019-01-27 15:11] VITALS: BP 124/84
== END 2019-01-27 15:28 | disposition home or self-care (01) ==
LOC: ED 12:52
DX: K52.9 Noninfective gastroenteritis and colitis, unspecified (principal); Z87.19 Personal history of other diseases of the digestive system; Z86.010 Personal history of colon polyps
CPT/HCPCS: 36415; 74177; 80053; 83690; 85025; 96374; 99284; A9270; Q9967

== ENCOUNTER 2020-01-15 07:00 | Outpatient (CLI) | payer MEDICARE, OTHER | END 2020-01-15 23:59 | disposition home or self-care (01) | LOC: LAB.R 07:00 | PROVIDERS: ATTEND Physician Assistant | DX: N39.0 Urinary tract infection, site not specified (principal) | CPT/HCPCS: 87086; 87181 ==

== ENCOUNTER 2020-02-09 14:30 | Outpatient (CLI) | payer MEDICARE, OTHER ==
--- NOTE | 2020-02-10 16:32 | Mammography Report ---
BILATERAL DIGITAL SCREENING MAMMOGRAM 3D/2D: 02/09/2020 CLINICAL: Routine screening. Comparison is made to exams dated: 05/06/2015 mammogram and 10/20/2012 mammogram - [facility]. The tissue of both breasts is predominantly fatty. No significant masses, calcifications, or other findings are seen in either breast. There has been no significant interval change. IMPRESSION: NEGATIVE There is no mammographic evidence of malignancy. A 1 year screening mammogram is recommended. This exam was interpreted at Station ID: [id number]. NOTE: For mammograms, a report in lay terms will be sent to the patient. Approximately 15% of breast malignancies will not be visualized mammographically. In the management of a palpable breast mass, a negative mammogram must not discourage biopsy of a clinically suspicious lesion. Electronically Signed By: Blaze rogers/laurita:02/09/2020 16:56:53 ACR BI-RADS Category 1: Negative 3341F PARENCHYMAL PATTERN: (F) - The breast(s) demonstrate(s) diffuse fatty replacement. BI-RADS CATEGORY: (1) - 1 RECOMMENDATION: (ANNUAL) - Recommend routine annual screening mammography. [id number] 1 year screening LATERALITY: (B)
== END 2020-02-09 14:31 | disposition home or self-care (01) ==
LOC: DI 14:30
DX: Z12.31 Encounter for screening mammogram for malignant neoplasm of breast (principal)
CPT/HCPCS: 77063; 77067

== ENCOUNTER 2020-02-24 08:09 | Day surgery (SDC) | payer MEDICARE, OTHER ==
[2020-02-24] MEDS ORDERED: LACTATED RINGERS 1,000 ML IV ONE ×2 (08:12→09:36)
[2020-02-24] MEDS ORDERED: MIDAZOLAM 2 MG/2 ML VIAL IVP ONE (09:07)
[2020-02-24] MEDS ORDERED: fentaNYL 100 MCG/2 ML VIAL IVP ONE (09:07)
[2020-02-24 10:04] VITALS: BP 105/77
== END 2020-02-24 08:10 | disposition home or self-care (01) ==
LOC: SDS 08:09
PROVIDERS: ATTEND Surgery
PROC: 0DB58ZX Excision of Esophagus, Via Natural or Artificial Opening Endoscopic, Diagnostic (ICD-10-PCS; principal; 2020-02-24 09:15)
DX: K21.9 Gastro-esophageal reflux disease without esophagitis (principal); R10.13 Epigastric pain; K29.70 Gastritis, unspecified, without bleeding; K20.90 Esophagitis, unspecified without bleeding
CPT/HCPCS: 43239; J7120

== ENCOUNTER 2020-04-25 11:53 | Outpatient (CLI) | payer MEDICARE, OTHER ==
--- NOTE | 2020-04-25 13:57 | CT Report ---
PROCEDURE: CHEST WO INDICATIONS: ASTHMA, EXERTIONAL SOB TECHNIQUE: Noncontrast 5 mm thick sections acquired from the pulmonary apices to the posterior costophrenic angl es. 7 mm thick coronal and sagittal MIP reformats were then acquired. For radiation dose reduction, the following was used: automated exposure control, adjustment of mA and/or kV according to patient size. COMPARISON: CT chest dated 06/07/2015. FINDINGS: Image quality: Excellent. Lungs and pleura: No acute air space opacities. No pleural effusions or pneumothorax. Central and peripheral airways are patent and normal in caliber. Mediastinum: Heart size is normal. No pericardial effusion. No mediastinal adenopathy by size crit eria. Thoracic aorta and central pulmonary arteries are normal in size. Esophagus is normal in giselle hien. No hiatal hernia. Bones and chest wall: No suspicious bony lesions. No vertebral body compression fractures. No axil mine or supraclavicular adenopathy by size criteria. The thyroid is normal in size. Abdomen: Visualized upper abdominal solid organs and bowel loops appear normal in the absence of con trast. IMPRESSION: Normal-appearing lung parenchyma, no mediastinal or hilar adenopathy. There is no evidence of alveoli tis, or pulmonary fibrotic change. Overall the study appears normal for age. Reviewed by: Asim Ly MD on 04/25/2020 1:56 PM [facility] Approved by: Asim Ly MD on 04/25/2020 1:56 PM PST Station ID: [id number]
== END 2020-04-25 11:54 | disposition home or self-care (01) ==
LOC: DI 11:53
PROVIDERS: ATTEND Physician Assistant
DX: J45.909 Unspecified asthma, uncomplicated (principal); R06.09 Other forms of dyspnea
CPT/HCPCS: 71250

== ENCOUNTER 2020-10-12 09:52 | Outpatient (CLI) | payer MEDICARE, OTHER ==
--- NOTE | 2020-10-12 13:04 | Ultrasound Report ---
PROCEDURE: Head or Neck Soft Tissue INDICATIONS: MULTIPLE THYROID NODULES TECHNIQUE: Real time scanning was performed of the neck region of interest, with image documentation . COMPARISON: None. FINDINGS: No soft tissue neck abnormality seen bilaterally Lesion 1: Right mid anterior. Measures 11 x 8 x 11 mm compared to 10 x 8 x 10 mm. Wider than tall. Predominantl y solid. Hypoechoic. Smooth margins. No echogenic foci. TI-RADS 4. Lesion 2: Right superior pole. Measures 12 x 7 x 11 mm compared to 10 x 7 x 9 mm. Wider than tall. Solid. Hypoe choic. Smooth margins. Punctate echogenic foci. TI-RADS 4. Lesion 3: Right inferior pole. Measures 8 x 5 x 9 mm. Not previously seen. Wider than tall. Predominantly solid . Hypoechoic. Smooth margins. No echogenic foci. TI-RADS 4. Lesion 4: Left mid midpole. Measures 12 x 8 x 12 mm compared to 11 x 7 x 11 mm. Wider than tall. Predominantly solid. Hypoechoic. Smooth margins. No echogenic foci. TI-RADS 4. Lesion 5: Left anterior midpole. Measures 13 x 6 x 10 mm compared to 10 x 5 x 8 mm. Wider than tall. Predominan tly solid. Hypoechoic. Smooth margins. Punctate echogenic foci. TI-RADS 5. Lesion 6: Left inferior pole. Measures 7 x 7 x 7 mm compared to 7 x 6 x 6 mm. Wider than tall. Predominantly so lid. Hypoechoic. Smooth margins. Peripheral calcifications in the wall. TI-RADS 4. IMPRESSION: 1. Left anterior midpole nodule measuring 13 x 6 x 10 mm with punctate echogenic foci is larger maria elena red to the prior study on 01/07/2018 and is TI-RADS 5. Given size greater than 1 cm, recommend FNA. 2. Multiple TI-RADS 4 lesions measuring less than 15 mm. Recommend follow-up at 1, 2, 3, and 5 years. Reviewed by: Liang De La Vega on 10/12/2020 1:03 PM PDT Approved by: Liang De La Vega on 10/12/2020 1:03 PM PDT Station ID: [id number]
== END 2020-10-12 09:53 | disposition home or self-care (01) ==
LOC: DI 09:52
PROVIDERS: ATTEND Physician Assistant Medical
DX: E04.2 Nontoxic multinodular goiter (principal)

== ENCOUNTER 2020-11-05 16:51 | Emergency (ER) | payer MEDICARE, OTHER ==
[2020-11-05 17:00] VITALS: BP 138/79
[2020-11-05] MEDS ORDERED: AMOX/CLAV 875 MG/125 MG TABLET PO STA (17:16)
--- NOTE | 2020-11-05 17:19 | ED Physician Documentation ---
PD HPI UPPER EXT INJURY - Stated complaint Stated Complaint: CAT BITE - Chief complaint Chief Complaint: Wound - History obtained from History obtained from: Patient - History of Present Illness Location: Right, Arm Type of injury: Other (cat bite) Pain level max: 3 Pain level now: 2 Improved by: Rest Worsened by: Moving, Palpating Associated symptoms: Swelling. No: Weakness, Numbness, Tingling - Additonal information Additional information: Patient is a 70-year-old female who presents to the emergency department with a cat bite yesterday. This is on the right arm, near the antecubital fossa. Noted redness and swelling today. Concerned about infection. Worse with movement and palpation, better with rest. Tetanus up-to-date. Review of Systems Constitutional: denies: Fever, Chills GI: denies: Vomiting Skin: denies: Rash Musculoskeletal: denies: Neck pain, Back pain Neurologic: denies: Headache PD PAST MEDICAL HISTORY - Past Medical History Past Medical History: Yes Cardiovascular: None Respiratory: None Neuro: None Endocrine/Autoimmune: None GI: GERD DEBURRER: None : None HEENT: Chronic vision loss Psych: Depression Musculoskeletal: None Derm: None - Past Surgical History Past Surgical History: Yes General: Appendectomy, Bowel surgery /DEBURRER: Other HEENT: Tonsil/Adenoidectomy - Present Medications Home Medications: Ambulatory Orders Medication Instructions Recorded Confirmed Cyclobenzaprine HCl 5 - 10 mg PO TID PRN 07/03/16 11/05/20 Sertraline HCl [Zoloft] 100 mg ORAL DAILY 08/08/16 11/05/20 Famotidine [Pepcid] 20 mg PO DAILY 02/23/20 11/05/20 Amox/Clav 875/125 [Augmentin] 1 tab PO Q12H #20 tablet 11/05/20 - Allergies Allergies/Adverse Reactions: Allergies Allergy/AdvReac Type Severity Reaction Status Date / Time No Known Drug Allergies Allergy Verified 11/05/20 16:58 - Social History Does the pt smoke?: No Smoking Status: Never smoker Does the pt drink ETOH?: Yes Does the pt have substance abuse?: No - Immunizations Immunizations are current?: Yes - POLST Patient has POLST: No PD ED PE NORMAL - Vitals Vital signs reviewed: Yes - General General: Alert and oriented X 3, No acute distress, Well developed/nourished - Derm Derm: Warm and dry - Extremities Extremities: Other (Right arm - Mild erythema and swelling just distal to the antecubital fossa. No abscess. Neurovascularly intact. Approximately a 2 x 2 centimeter area. No streaking.) - Neuro Neuro: Alert and oriented X 3 - Psych Psych: Normal mood, Normal affect Results - Vitals Vitals: Vital Signs - 24 hr 11/05/20 16:58 Temperature 36.5 C Heart Rate 77 Respiratory 18 Rate Blood Pressure 138/79 H O2 Saturation 96 Oxygen O2 Source Room air PD MEDICAL DECISION MAKING - ED course Complexity details: considered differential, d/w patient ED course: Patient with what appears to be an infected cat bite. Will start on Augmentin and have her follow-up closely with her doctor. Tetanus up-to-date. Patient counseled regarding signs and symptoms for which I believe and urgent re- evaluation would be necessary. Patient with good understanding of and agreement to plan and is comfortable going home at this time This document was made in part using voice recognition software. While efforts are made to proofread this document, sound alike and grammatical errors may occur. Departure - Departure Disposition: 01 Home, Self Care Clinical Impression: Cat bite Qualifiers: Encounter type: initial encounter Qualified Code(s): W55.01XA - Bitten by cat, initial encounter Cellulitis Qualifiers: Site of cellulitis: extremity Site of cellulitis of extremity: upper extremity Laterality: right Qualified Code(s): L03.113 - Cellulitis of right upper limb Condition: Good Instructions: ED Bite Animal General, ED Infec Skin Cellulitis Follow-Up: Luz Tate PA-C [Primary Care Provider] - Within 3 Days (for wound check ) Prescriptions: Amox/Clav 875/125 [Augmentin] 1 tab PO Q12H #20 tablet Comments: Your prescription was sent to [facility] in [place]. Please take all ant ibiotics until gone. Return if you worsen. Follow-up with your doctor for further care. Discharge Date/Time: 11/05/20 17:31
== END 2020-11-05 17:31 | disposition home or self-care (01) ==
LOC: ED 16:51
DX: L03.113 Cellulitis of right upper limb (principal); W55.01XA Bitten by cat, initial encounter
CPT/HCPCS: 99282; 99284; A9270

== ENCOUNTER 2020-11-14 09:45 | Outpatient (CLI) | payer MEDICARE, OTHER ==
[2020-11-14 10:13] LABS: BASOPHILS % (AUTO) 0.2 %; EOSINOPHILS # (AUTO) 0.1 10^3/uL (0.0-0.7); EOSINOPHILS % (AUTO) 2.7 %; HCT - HEMATOCRIT 40.9 % (37.0-47.0); HGB - HEMOGLOBIN 13.5 g/dL (12.0-16.0); LYMPHOCYTES # (AUTO) 1.4 10^3/uL (1.5-3.5); LYMPHOCYTES % (AUTO) 30.7 %; MEAN CORPUSCULAR HEMOGLOBIN 29.5 pg (27.0-31.0); MEAN CORPUSCULAR VOLUME 89.3 fL (81.0-99.0); MONOCYTES # (AUTO) 0.3 10^3/uL (0.0-1.0); MONOCYTES % (AUTO) 7.6 %; NEUTROPHILS # (AUTO) 2.6 10^3/uL (1.5-6.6); NEUTROPHILS % (AUTO) 58.6 %; PLT - PLATELET COUNT 170 10^3/uL (130-450); RED BLOOD COUNT 4.58 10^6/uL (4.20-5.40); RED CELL DISTRIBUTION WIDTH 13.4 % (12.0-15.0); WHITE BLOOD COUNT 4.5 x10^3/uL (4.8-10.8)
[2020-11-14 10:36] LABS: ALBUMIN 4.2 g/dL (3.2-5.5); ALBUMIN/GLOBULIN RATIO 1.6 (1.0-2.2); ALKALINE PHOSPHATASE 84 IU/L (42-121); ALT ALANINE AMINOTRANSFERASE 19 IU/L (10-60); AST ASPARTATE AMINOTRANSFERASE 20 IU/L (10-42); BILIRUBIN,TOTAL 0.6 mg/dL (0.2-1.0); BUN - BLOOD UREA NITROGEN 21 mg/dL (6-20); CALCIUM 9.6 mg/dL (8.5-10.3); CARBON DIOXIDE - CO2 26 mmol/L (21-32); CHLORIDE 106 mmol/L (101-111); CHOL/HDL RATIO 3.8 (<4.4); CHOLESTEROL 257 mg/dL; CREATININE 0.8 mg/dL (0.4-1.0); GFR - MDRD 71 (>89); GLUCOSE 97 mg/dL (70-100); HDL CHOLESTEROL 68 mg/dL; LDL CHOLESTEROL,CALCULATED 173 mg/dL; LDL/HDL RATIO 2.5 (<4.4); POTASSIUM 3.9 mmol/L (3.5-5.0); SODIUM 139 mmol/L (135-145); TOTAL PROTEIN 6.9 g/dL (6.7-8.2); TRIGLYCERIDES 78 mg/dL; VLDL CHOLESTEROL 16 mg/dL
[2020-11-14 10:47] LABS: THYROID STIMULATING HORMONE 2.12 uIU/mL (0.34-5.60)
== END 2020-11-14 09:46 | disposition home or self-care (01) ==
LOC: LAB 09:45
PROVIDERS: ATTEND Physician Assistant Medical
DX: E78.5 Hyperlipidemia, unspecified (principal); E03.9 Hypothyroidism, unspecified; J30.9 Allergic rhinitis, unspecified
CPT/HCPCS: 36415; 80053; 80061; 83721; 84443; 85025

== ENCOUNTER 2020-11-17 06:12 | Day surgery (SDC) | payer MEDICARE, OTHER ==
[~2020-11-17 06:12] MED LIST changes: +CYCLOPENTOLATE 1% OPHTH DROPS 2 ML ONE; +KETOROLAC 0.45% OPHTH DROPS ONE; -LACTATED RINGERS 1,000 ML IV ONE; +PHENYLEPHRINE 2.5% OPHTH 2 ML DROPS ONE; +PROPARACAINE 0.5% OPHTH DROPS 15 ML ONE; -ceFAZolin 2 GM/50 ML 2 GM/50 ML BAG IV ONE
[2020-11-17] MEDS ORDERED: LACTATED RINGERS 1,000 ML IV ONE ×2 (06:13→07:46)
[2020-11-17] MEDS ORDERED: TRIAMCIN/MOXIFLOX OPHTHALMIC 0.6 ML VIAL IO ONE ×2 (06:56→09:00)
[2020-11-17] MEDS ORDERED: BSS/LIDOCAINE/EPINEPHRINE 1 ML SYRINGE ONE (06:57)
[2020-11-17] MEDS ORDERED: EPINEPHrine 1 MG/ML AMP ONE (06:57)
[2020-11-17] MEDS ORDERED: BRIMONIDINE 0.2% OPHTH DROPS 5 ML ONE (06:57)
[2020-11-17] MEDS ORDERED: TIMOLOL 0.5% OPHTH DROPS ONE (06:57)
[2020-11-17] MEDS ORDERED: VANCOMYCIN OPHTHALMI 8MG/0.8ML 8 MG/0.8 ML SYRINGE IO ONE ×2 (06:57→09:00)
--- NOTE | 2020-11-17 07:02 | ANESTHESIA ---
Pre-Anesthesia VS, & Labs - Diagnosis L senile combined cataract - Procedure L extraction cataract w/IOL Vital Signs: Temp Pulse Resp BP Pulse Ox 36.0 C L 74 22 124/73 98 11/17/20 06:28 11/17/20 06:28 11/17/20 06:28 11/17/20 06:28 11/17/20 06:28 Height: 5 ft 3 in Weight (kg): 66.5 kg Body Mass Index: 25.9 BMI Classification: Overweight - NPO >8 hours - Is Patient ?: No - Lab Results Lab results reviewed: Yes Home Medications and Allergies Cyclobenzaprine HCl 5 - 10 mg PO TID PRN 07/03/16 Sertraline HCl [Zoloft] 100 mg ORAL DAILY 08/08/16 Famotidine [Pepcid] 20 mg PO DAILY 02/23/20 Allergies/Adverse Reactions: Allergies Allergy/AdvReac Type Severity Reaction Status Date / Time No Known Drug Allergies Allergy Verified 11/17/20 06:38 Anes History & Medical History - Anesthetic History Anesthesia Complications: reports: No previous complications Family history of Anesthesia Complications: Denies Family history of Malignant Hyperthermia: Denies - Medical History Cardiovascular: reports: None Pulmonary: reports: None Gastrointestinal: reports: GERD Urinary: reports: None Neuro: reports: None Musculoskeletal: reports: None Endocrine/Autoimmune: reports: None Skin: reports: None Smoking Status: Never smoker - Surgical History General: reports: Appendectomy, Bowel surgery, Other (incisional hernia) Eyes Ears Nose Throat (EENT): reports: Tonsil/Adenoidectomy Gynecologic: reports: Other Exam General: Alert, Oriented x3, Cooperative Dental: WNL Mouth Openin Fingerbreadth Mallampati classification: III Thyromental Distance: 4-6 cm Respiratory: Lungs clear, Normal breath sounds, No respiratory distress Cardiovascular: Regular rate Neurological: Normal speech Mental/Cognitive Status: Alert/Oriented X3, Normal for patient Cognitive Status: Within normal limits Plan Anesthesia Type: MAC Consent for Procedure(s) Verified and Reviewed: Yes Code Status: Attempt Resuscitation ASA classification: 2-Mild systemic disease Is this case an emergency?: No
[2020-11-17] MEDS ORDERED: MIDAZOLAM 2 MG/2 ML VIAL ONE (07:22)
--- NOTE | 2020-11-17 07:59 | OPERATIVE REPORT ---
Operative Report - Other Other Information/Narrative: Date of Surgery: 11/17/20 Preop Dx: Visually significant cataract left eye. This was the first cataract surgery. Postop Dx: Same Procedure: Phacoemulsification with posterior chamber intraocular lens implant left eye Surgeon: Dr. Waldemar Treviño Anesthesia: Monitored anesthesia care Complications: None Operative Indications: This is a 70-year-old F with progressive vision loss in the left eye due to 2+ nuclear sclerotic and 3+ cortical cataract. Best corrected visual acuity was 20/50 with glare to 20/800 vision in the left eye. Indications for surgery were: - Overall decrease in vision - Difficulty reading - Difficulty seeing street signs - Difficulty driving in low light or at night - Difficulty with glare or bright lights in any situation The patient was consented at length concerning the risks and benefits of cataract surgery after which the patient expressed a desire to proceed with surgery. Operative Procedure: The patient was taken into OR#3 and placed under monitored anesthesia care. A surgical time-out was conducted confirming correct patient, correct procedure, and correct surgical site. The patient was given topical anesthesia and then prepped and draped in the usual sterile fashion. The eye was entered at the 6 and 3 oclock positions. Intracameral Shugarcaine was injected into the anterior chamber followed by a dispersive viscoelastic. A continuous-tear curvilinear capsulorhexis was performed. The nucleus was hydrodissected and phacoemulsified. The cortex was evacuated using automated infusion and aspiration. A cohesive viscoelastic was injected into the capsular bag and a 18.0 diopter intraocular lens was inserted into the bag. Infusion and aspiration were used to evacuate the viscoelastic materials from the eye. The wounds were hydrated and the eye inflated to physiologic pressure using balanced salt solution. Approximately 0.25ml of a mixture of triamcinolone and moxifloxacin was injected trans-sclerally into the vitreous in the inferotemporal quadrant using a 30 gauge cannula. An additional 0.55ml of a mixture of triamcinolone, moxifloxacin, and vancomycin was injected subconju nctivally in the superior quadrant for infection and inflammation prophylaxis. Wound integrity was checked with Weck-Huong sponges. The patient was taken from the operating room in good condition and given post-op instructions.
[2020-11-17 08:14] VITALS: BP 122/65
--- NOTE | 2020-11-17 08:16 | ANESTHESIA POST OP EVALUATION ---
Anesthesia Post Eval - Post Anesthesia Eval Vitals: Last Vital Signs Temp 36.4 C L 11/17/20 08:13 Pulse 70 11/17/20 08:13 Resp 16 11/17/20 08:13 BP 122/65 11/17/20 08:13 Pulse Ox 99 11/17/20 08:13 CV Function Including HR & BP: Stable Pain Control: Satisfactory Nausea & Vomiting: Negative Mental Status: Baseline Respiratory Status: Airway Patent Hydration Status: Satisfactory Anesthesia Complications: None
[2020-11-17] MEDS ORDERED: TIMOLOL 0.5% OPHTH DROPS OPTH ONE (09:00)
[2020-11-17] MEDS ORDERED: EPINEPHrine 1 MG/ML AMP IR ONE (09:00)
[2020-11-17] MEDS ORDERED: BSS/LIDOCAINE/EPINEPHRINE 1 ML SYRINGE IO ONE (09:00)
[2020-11-17] MEDS ORDERED: BRIMONIDINE 0.2% OPHTH DROPS 5 ML OPTH ONE (09:00)
[2020-11-17] MEDS ORDERED: PROPARACAINE 0.5% OPHTH DROPS 15 ML EACHEYE ONE (09:00)
[2020-11-17] MEDS ORDERED: CHONDR SULF/HYALURONATE SYRINGE IO ONE (09:00)
== END 2020-11-17 06:13 | disposition home or self-care (01) ==
LOC: SDS 06:12
PROVIDERS: ATTEND Ophthalmology
DX: H25.812 Combined forms of age-related cataract, left eye (principal); K21.9 Gastro-esophageal reflux disease without esophagitis; F32.9 Major depressive disorder, single episode, unspecified; G47.00 Insomnia, unspecified; G25.81 Restless legs syndrome
CPT/HCPCS: 66984; A9270; J3490; J7120

== ENCOUNTER 2021-02-16 10:10 | Outpatient (CLI) | payer MEDICARE, OTHER ==
[2021-02-16 10:43] LABS: CHOL/HDL RATIO 3.5 (<4.4); CHOLESTEROL 239 mg/dL; HDL CHOLESTEROL 68 mg/dL; LDL CHOLESTEROL,CALCULATED 159 mg/dL; LDL/HDL RATIO 2.3 (<4.4); TRIGLYCERIDES 62 mg/dL; VLDL CHOLESTEROL 12 mg/dL
== END 2021-02-16 10:11 | disposition home or self-care (01) ==
LOC: LAB 10:10
PROVIDERS: ATTEND Physician Assistant Medical
DX: E78.5 Hyperlipidemia, unspecified (principal)
CPT/HCPCS: 36415; 80061; 83721

== ENCOUNTER 2021-02-22 14:17 | Emergency (ER) | payer MEDICARE, OTHER ==
--- NOTE | 2021-02-22 14:36 | ED Physician Documentation ---
PD HPI ABD PAIN - Stated complaint Stated Complaint: ABD PX - Chief complaint Chief Complaint: Abd Pain - History obtained from History obtained from: Patient - History of Present Illness Timing - onset: How many weeks ago (has had right abd pain with movement intermittently for weeks. Has been doing lifting objects at home and will not the pain more after those activities. No nausea nor vomiting. Known hernia in area and concerned this is causing symptoms.) Timing - details: Gradual onset, Still present, Intermittant Quality: Cramping, Aching, Pain Location: Periumbilical, RLQ Radiation: Right flank. No: Chest Associated symptoms: No: Fever, Nausea, Vomiting, Diarrhea Similar symptoms before: Has not had sx before Review of Systems Constitutional: denies: Fever, Chills Nose: denies: Rhinorrhea / runny nose, Congestion Throat: denies: Sore throat Respiratory: denies: Cough GI: reports: Abdominal Pain (intermittent RLQ?periumbilical as in HPI.). 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 CHARGER: Other HEENT: Tonsil/Adenoidectomy - Present Medications Home Medications: Ambulatory Orders Medication Instructions Recorded Confirmed Cyclobenzaprine HCl 5 - 10 mg PO TID PRN 07/03/16 11/17/20 Sertraline HCl [Zoloft] 100 mg ORAL DAILY 08/08/16 11/17/20 Famotidine [Pepcid] 20 mg PO DAILY 02/23/20 11/17/20 - Allergies Allergies/Adverse Reactions: Allergies Allergy/AdvReac Type Severity Reaction Status Date / Time No Known Drug Allergies Allergy Verified 02/22/21 14:26 - Social History Does the pt smoke?: No Smoking Status: Never smoker Does the pt drink ETOH?: Yes Does the pt have substance abuse?: No - Immunizations Immunizations are current?: Yes - POLST Patient has POLST: No PD ED PE NORMAL - Vitals Vital signs reviewed: Yes - General General: Alert and oriented X 3, Well developed/nourished - Neck Neck: Supple, no meningeal sign, No adenopathy - Cardiac Cardiac: RRR, No murmur - Respiratory Respiratory: Clear bilaterally - Abdomen Abdomen: Normal bowel sounds, Soft, Non distended, No organomegaly, Other (small hernia felt right paraumbilical area that is soft and not tender. There is some right mid to lower abd tenderness. No guarding nor percussion tender. Some pannus of abd and it was lifted with no lesions/redness.) - Derm Derm: Normal color, Warm and dry, No rash - Extremities Extremities: No tenderness to palpate, Normal ROM s pain, No edema, No calf tenderness / cord - Neuro Neuro: Alert and oriented X 3, No motor deficit, Normal speech Results - Vitals Vitals: Vital Signs - 24 hr 02/22/21 02/22/21 14:20 15:13 Temperature 36.6 C Heart Rate 84 78 Respiratory 18 18 Rate Blood Pressure 129/79 137/94 H O2 Saturation 99 98 Oxygen O2 Source Room air - Labs Labs: Laboratory Tests 02/22/21 02/22/21 02/22/21 15:07 15:07 16:23 WBC 4.6 L RBC 4.58 Hgb 13.3 Hct 41.2 MCV 90.0 MCH 29.0 MCHC 32.3 RDW 13.2 Plt Count 187 MPV 9.4 Neut # (Auto) 3.0 Lymph # (Auto) 1.2 L [place] # (Auto) 0.3 Eos # (Auto) 0.1 Baso # (Auto) 0.0 Absolute Nucleated RBC 0.00 Nucleated RBC % 0.0 Sodium 136 Potassium 3.8 Chloride 101 Carbon Dioxide 25 Anion Gap 10.0 BUN 15 Creatinine 0.8 Estimated GFR (MDRD) 71 L Glucose 84 Calcium 9.6 Total Bilirubin 0.5 AST 20 ALT 19 Alkaline Phosphatase 74 Total Protein 7.1 Albumin 4.4 Globulin 2.7 Albumin/Globulin Ratio 1.6 Lipase 37 Urine Color YELLOW Urine Clarity CLEAR Urine pH 6.0 Ur Specific [place] 1.010 Urine Protein NEGATIVE Urine Glucose (UA) NEGATIVE Urine Ketones NEGATIVE Urine Occult Blood NEGATIVE Urine Nitrite NEGATIVE Urine Bilirubin NEGATIVE Urine Urobilinogen 0.2 (NORMAL) Ur Leukocyte Esterase NEGATIVE Ur Microscopic Review NOT INDICATED Urine Culture Comments NOT INDICATED - Rads (name of study) abd/pelvic CT Radiology: Prelim report reviewed (no acute process seen. ), See rad report PD MEDICAL DECISION MAKING - ED course Complexity details: reviewed results, considered differential (right abd pain with mild tenderness and no peritoneal symptoms. Consider soft tissue muscle or such. Can get CT to ensure no internal process. ), d/w patient Departure - Departure Disposition: 01 Home, Self Care Clinical Impression: Right sided abdominal pain Condition: Stable Record reviewed to determine appropriate education?: Yes Instructions: ED Abdominal Pain Female Non-Specific Abdominal Pain Follow-Up: Luz Tate PA-C [Primary Care Provider] - Shabbir Sosa MD [Provider Admit Priv/Credential] - Comments: Your blood tests, urinalysis, CT scan do not show any acute obvious process to cause the pain. Considerations would be muscular pain or adhesions pulling with activity and having some inflammation. Other consideration could be your hernia intermittently causing symptoms. The hernia is not visible on the CT scan which makes sense given the position lying on your back in which the CT scan is obtained. I would suggest an appointment with 's office to discuss the possibility or concern of pain coming intermittently from your hernia versus other cause. Activity as tolerated. Tylenol every 4-6 hours if needed for pains. Discharge Date/Time: 02/22/21 18:00
[2021-02-22] MEDS ORDERED: KETOROLAC 15 MG/ML VIAL IVP STA (14:49)
[2021-02-22] MEDS ORDERED: SODIUM CHLORIDE 0.9% 1,000 ML IV STA (14:50)
[2021-02-22 15:13] VITALS: BP 137/94
[2021-02-22 15:18] LABS: BASOPHILS % (AUTO) 0.2 %; EOSINOPHILS # (AUTO) 0.1 10^3/uL (0.0-0.7); EOSINOPHILS % (AUTO) 1.3 %; HCT - HEMATOCRIT 41.2 % (37.0-47.0); HGB - HEMOGLOBIN 13.3 g/dL (12.0-16.0); LYMPHOCYTES # (AUTO) 1.2 10^3/uL (1.5-3.5); LYMPHOCYTES % (AUTO) 25.5 %; MEAN CORPUSCULAR HGB CONC 32.3 g/dL (32.0-36.0); MEAN PLATELET VOLUME 9.4 fL (7.9-10.8); MONOCYTES # (AUTO) 0.3 10^3/uL (0.0-1.0); MONOCYTES % (AUTO) 5.9 %; NEUTROPHILS % (AUTO) 66.9 %; PLT - PLATELET COUNT 187 10^3/uL (130-450); RED BLOOD COUNT 4.58 10^6/uL (4.20-5.40); RED CELL DISTRIBUTION WIDTH 13.2 % (12.0-15.0); WHITE BLOOD COUNT 4.6 x10^3/uL (4.8-10.8)
[2021-02-22 15:36] LABS: ALBUMIN 4.4 g/dL (3.2-5.5); ALBUMIN/GLOBULIN RATIO 1.6 (1.0-2.2); BILIRUBIN,TOTAL 0.5 mg/dL (0.2-1.0); CALCIUM 9.6 mg/dL (8.5-10.3); CREATININE 0.8 mg/dL (0.4-1.0); POTASSIUM 3.8 mmol/L (3.5-5.0); TOTAL PROTEIN 7.1 g/dL (6.7-8.2)
[2021-02-22] MEDS ORDERED: IOVERSOL 320 100 ML VIAL IVP ONE ×2 (15:39→18:24)
--- NOTE | 2021-02-22 16:17 | CT Report ---
PROCEDURE: Abdomen/Pelvis W INDICATIONS: Abdominal pain, acute, nonlocalized CONTRAST: IV CONTRAST: Optiray 320 ml: 100 PO CONTRAST: *NO PO CONTRAST TECHNIQUE: After the administration of IV contrast, 5 mm thick sections acquired from the diaphragms to the symp hysis. 5 mm thick coronal and sagittal reformats were acquired. For radiation dose reduction, the f ollowing was used: automated exposure control, adjustment of mA and/or kV according to patient size. COMPARISON: CT abdomen pelvis 01/27/2019 FINDINGS: Image quality: Excellent. ABDOMEN: Lung bases: Lung bases are clear. Heart size is normal. Solid organs: Liver is enlarged with steatosis. The spleen is normal in size. Hepatic cysts are unch anged largest in the anterior left lobe. Gallbladder is unremarkable Biliary system is non dilated. Pancreas enhances normally. No adrenal nodules. Kidneys demonstrate normal size and enhancement, w ithout hydronephrosis. Simple left renal cyst is noted. Peritoneum and bowel: Bowel loops demonstrate normal wall thickness and caliber. No free fluid or a ir. Colonic diverticula are present without associated inflammatory change. Nodes and vessels: No retroperitoneal or mesenteric adenopathy by size criteria. Aorta and inferior vena cava are normal in size. Miscellaneous: No ventral hernias. PELVIS: Genitourinary: Bladder wall thickness is normal. Miscellaneous: No inguinal hernias or adenopathy. Bones: No suspicious bony lesions. No vertebral body compression fractures. IMPRESSION: 1. No visualized inflammatory change within the abdomen or pelvis. 2. Diverticulosis. 3. Hepatomegaly with steatosis. Reviewed by: Madhuri Iglesias MD on 02/22/2021 4:16 PM PST Approved by: Madhuri Iglesias MD on 02/22/2021 4:16 PM PST Station ID: [id number]
[2021-02-22 16:31] LABS: BILIRUBIN,URINE NEGATIVE (NEGATIVE); GLUCOSE, URINE (UA) NEGATIVE (NEGATIVE); KETONES,URINE (UA) NEGATIVE (NEGATIVE); LEUKOCYTE ESTERASE, URINE NEGATIVE (NEGATIVE); NITRITE,URINE NEGATIVE (NEGATIVE); OCCULT BLOOD,URINE NEGATIVE (NEGATIVE); PROTEIN,URINE NEGATIVE (NEGATIVE); UROBILINOGEN,URINE 0.2 (NORMAL) E.U./dL (NORMAL)
[2021-02-22 16:35] LABS: CLARITY,URINE CLEAR (CLEAR)
== END 2021-02-22 18:00 | disposition home or self-care (01) ==
LOC: ED 14:17
DX: R10.33 Periumbilical pain (principal); R10.31 Right lower quadrant pain; K42.9 Umbilical hernia without obstruction or gangrene
CPT/HCPCS: 36415; 74177; 80053; 81003; 83690; 85025; 96374; 99282; 99284; Q9967; 81001; 87086

== ENCOUNTER 2021-03-14 10:04 | Outpatient (CLI) | payer MEDICARE, OTHER ==
[~2021-03-14 10:04] MED LIST changes: +BUFFERED LIDOCAINE 10 ML SYRINGE ONE; -CYCLOPENTOLATE 1% OPHTH DROPS 2 ML ONE; -KETOROLAC 0.45% OPHTH DROPS ONE; -PHENYLEPHRINE 2.5% OPHTH 2 ML DROPS ONE; -PROPARACAINE 0.5% OPHTH DROPS 15 ML ONE
[2021-03-14] MEDS ORDERED: BUFFERED LIDOCAINE 10 ML SYRINGE IU ONE (11:38)
--- NOTE | 2021-03-14 13:13 | Ultrasound Report ---
PROCEDURE: FNA Bx w/US Gnd 1st les INDICATIONS: Thyroid nodules TECHNIQUE: The indications, alternatives, benefits, risks, and complications of the procedure were explained to the patient. Written informed consent was obtained and placed in the chart. The area of interest wa s examined sonographically and a site was chosen for ultrasound guided percutaneous sampling. The sk in was prepared and draped in the usual fashion, and anesthetized with 1% lidocaine infiltrated from the skin down to the lesion. Multiple passes were then performed, with contents emptied into an appr [facility] pathology specimen container. A bandage was applied to the area of access at completion of t he study. COMPARISON: None. FINDINGS: Location(s) of lesion(s) sampled: Left mid thyroid [place]: 25 gauge hypodermic needles. Number of passes: 4 Medications: 1% lidocaine for local anaesthesia. Complications: None. IMPRESSION: Successful ultrasound-guided left thyroid lobe nodule fine needle aspiration, with cytology results p ending. Reviewed by: Elkin Hartley MD on 03/14/2021 1:12 PM PST Approved by: Elkin Hartley MD on 03/14/2021 1:12 PM PST Station ID: [id number]
== END 2021-03-14 10:05 | disposition home or self-care (01) ==
LOC: DI 10:04
PROVIDERS: ATTEND Physician Assistant Medical
DX: E04.2 Nontoxic multinodular goiter (principal)
CPT/HCPCS: 10005

== ENCOUNTER 2021-03-15 09:15 | Outpatient (CLI) | payer MEDICARE, OTHER | END 2021-03-15 09:16 | disposition home or self-care (01) | LOC: RT 09:15 | PROVIDERS: ATTEND Physician Assistant Medical | DX: J45.909 Unspecified asthma, uncomplicated (principal) | CPT/HCPCS: 94010; 94729 ==

== ENCOUNTER 2021-03-23 08:18 | Day surgery (SDC) | payer MEDICARE, OTHER ==
[~2021-03-23 08:18] MED LIST changes: -BUFFERED LIDOCAINE 10 ML SYRINGE ONE; +CYCLOPENTOLATE 1% OPHTH DROPS 2 ML ONE; +KETOROLAC 0.45% OPHTH DROPS ONE; +PHENYLEPHRINE 2.5% OPHTH 2 ML DROPS ONE; +PROPARACAINE 0.5% OPHTH DROPS 15 ML ONE
[2021-03-23] MEDS ORDERED: LACTATED RINGERS 1,000 ML IV ONE ×2 (08:38→09:56)
--- NOTE | 2021-03-23 09:16 | ANESTHESIA ---
Pre-Anesthesia VS, & Labs - Diagnosis R cataract - Procedure R PhacoIOL Vital Signs: Temp Pulse Resp BP Pulse Ox 36.5 C 75 16 127/83 H 100 03/23/21 08:36 03/23/21 08:36 03/23/21 08:36 03/23/21 08:36 03/23/21 08:36 Height: 5 ft 3 in Weight (kg): 64 kg Body Mass Index: 25.0 BMI Classification: Overweight - NPO >8 hours - Is Patient ?: No Home Medications and Allergies Cyclobenzaprine HCl 5 - 10 mg PO TID PRN 07/03/16 Sertraline HCl [Zoloft] 100 mg ORAL DAILY 08/08/16 Famotidine [Pepcid] 20 mg PO DAILY 02/23/20 Allergies/Adverse Reactions: Allergies Allergy/AdvReac Type Severity Reaction Status Date / Time No Known Drug Allergies Allergy Verified 02/22/21 14:26 Anes History & Medical History - Anesthetic History Anesthesia Complications: reports: No previous complications Family history of Anesthesia Complications: Denies Family history of Malignant Hyperthermia: Denies - Medical History Cardiovascular: reports: None Pulmonary: reports: None Gastrointestinal: reports: GERD Urinary: reports: None Neuro: reports: None Musculoskeletal: reports: None Endocrine/Autoimmune: reports: None Skin: reports: None Smoking Status: Never smoker - Surgical History General: reports: Appendectomy, Bowel surgery, Other Eyes Ears Nose Throat (EENT): reports: Cataracts, Tonsil/Adenoidectomy Gynecologic: reports: Other Exam General: Alert, Oriented x3, Cooperative Dental: WNL Mouth Openin Fingerbreadth Neck Mobility: Normal Mallampati classification: I Thyromental Distance: 4-6 cm Respiratory: Lungs clear Cardiovascular: Regular rate Plan Anesthesia Type: MAC Consent for Procedure(s) Verified and Reviewed: Yes Code Status: Attempt Resuscitation ASA classification: 2-Mild systemic disease Is this case an emergency?: No
[2021-03-23] MEDS ORDERED: fentaNYL 100 MCG/2 ML VIAL ONE (09:26)
[2021-03-23] MEDS ORDERED: MIDAZOLAM 2 MG/2 ML VIAL ONE (09:26)
[2021-03-23] MEDS ORDERED: EPINEPHrine 1 MG/ML AMP IR ONE (09:31)
[2021-03-23] MEDS ORDERED: BRIMONIDINE 0.2% OPHTH DROPS 5 ML OPTH ONE (09:31)
[2021-03-23] MEDS ORDERED: TIMOLOL 0.5% OPHTH DROPS OPTH ONE (09:32)
[2021-03-23] MEDS ORDERED: TRIAMCIN/MOXIFLOX OPHTHALMIC 0.6 ML VIAL IO ONE ×2 (09:32→12:53)
[2021-03-23] MEDS ORDERED: BSS/LIDOCAINE/EPINEPHRINE 1 ML SYRINGE IO ONE (09:32)
[2021-03-23] MEDS ORDERED: PROPARACAINE 0.5% OPHTH DROPS 15 ML EACHEYE ONE (09:33)
--- NOTE | 2021-03-23 10:06 | OPERATIVE REPORT ---
Operative Report - Other Other Information/Narrative: Date of Surgery: 03/23/21 Preop Dx: Visually significant cataract right eye. Cataract surgery was performed in the left eye on . Postop Dx: Same Procedure: Phacoemulsification with posterior chamber intraocular lens implant right eye Surgeon: Dr. Waldemar Treviño Anesthesia: Monitored anesthesia care Complications: None Operative Indications: This is a 70-year-old F with progressive vision loss in the right eye due to 2+ nuclear sclerotic and 3+ cortical cataract. Best corrected visual acuity was 20/30 with glare to 20/50 vision in the right eye. Indications for surgery were: - Overall decrease in vision - Difficulty seeing words on a computer screen - Difficulty reading - Difficulty seeing words, closed captions, or game scores on TV - Difficulty seeing street signs - Difficulty driving in low light or at night - Difficulty driving at night because of headlights from other vehicles - Difficulty with glare or bright lights in any situation The patient was consented at length concerning the risks and benefits of cataract surgery after which the patient expressed a desire to proceed with surgery. Operative Procedure: The patient was taken into OR#3 and placed under monitored anesthesia care. A surgical time-out was conducted confirming correct patient, correct procedure, and correct surgical site. The patient was given topical anesthesia and then prepped and draped in the usual sterile fashion. The eye was entered at the 6 and 3 oclock positions. Intracameral Shugarcaine was injected into the anterior chamber followed by a dispersive viscoelastic. A continuous-tear curvilinear capsulorhexis was performed. The nucleus was hydrodissected and phacoemulsified. The cortex was evacuated using automated infusion and aspiration. A cohesive viscoelastic was injected into the capsular bag and a 17.0 diopter intraocular lens was inserted into the bag. Infusion and aspiration were used to evacuate the viscoelastic materials from the eye. The wounds were hydrated and the eye inflated to physiologic pressure using balanced salt solution. Approximately 0.25ml of a mixture of triamcinolone and moxifloxacin was injected trans-sclerally into the vitreous in the inferotemporal quadrant using a 30 gauge cannula. An additional 0.55ml of a mixture of triamcinolone and moxifloxacin was injected subconjunctivally in the superior quadrant for infection and inflammation prophylaxis. Wound integrity was checked with Weck-Huong sponges. The patient was taken from the operating room in good condition and given post-op instructions.
[2021-03-23 10:20] VITALS: BP 126/70
[2021-03-23] MEDS ORDERED: BRIMONIDINE 0.2% OPHTH DROPS 5 ML ONE (12:54)
[2021-03-23] MEDS ORDERED: TIMOLOL 0.5% OPHTH DROPS ONE (12:54)
== END 2021-03-23 08:19 | disposition home or self-care (01) ==
LOC: SDS 08:18
PROVIDERS: ATTEND Ophthalmology
DX: H25.811 Combined forms of age-related cataract, right eye (principal); Z98.42 Cataract extraction status, left eye
CPT/HCPCS: 66984; A9270; J3490; J7120

== ENCOUNTER 2021-05-24 07:00 | Day surgery (SDC) | payer MEDICARE, OTHER ==
[2021-05-24] MEDS ORDERED: LACTATED RINGERS 1,000 ML IV ONE (07:24)
--- NOTE | 2021-05-24 07:34 | ANESTHESIA ---
Pre-Anesthesia VS, & Labs - Diagnosis screening, hx of colon cancer - Procedure Colonoscopy Vital Signs: Temp Pulse Resp BP Pulse Ox 36.1 C L 90 16 143/96 H 98 05/24/21 07:06 05/24/21 07:06 05/24/21 07:06 05/24/21 07:06 05/24/21 07:06 Height: 5 ft 4 in Weight (kg): 63.5 kg Body Mass Index: 24.0 BMI Classification: Healthy weight - NPO >8 hours - Is Patient ?: No - Lab Results Lab results reviewed: Yes Home Medications and Allergies Cyclobenzaprine HCl 5 - 10 mg PO TID PRN 07/03/16 Sertraline HCl [Zoloft] 150 mg ORAL DAILY 08/08/16 Famotidine [Pepcid] 20 mg PO DAILY 02/23/20 Allergies/Adverse Reactions: Allergies Allergy/AdvReac Type Severity Reaction Status Date / Time No Known Drug Allergies Allergy Verified 02/22/21 14:26 Anes History & Medical History - Anesthetic History Anesthesia Complications: reports: No previous complications Family history of Anesthesia Complications: Denies Family history of Malignant Hyperthermia: Denies - Medical History Cardiovascular: reports: None Pulmonary: reports: None Gastrointestinal: reports: GERD Urinary: reports: None Neuro: reports: None Musculoskeletal: reports: None Endocrine/Autoimmune: reports: None Skin: reports: None Smoking Status: Never smoker - Surgical History General: reports: Appendectomy, Bowel surgery, Other Eyes Ears Nose Throat (EENT): reports: Tonsil/Adenoidectomy Gynecologic: reports: Other Exam General: Alert, Oriented x3, Cooperative, No acute distress Mouth Openin Fingerbreadth Neck Mobility: Normal Mallampati classification: II Plan Anesthesia Type: General, Total IV Consent for Procedure(s) Verified and Reviewed: Yes Code Status: Attempt Resuscitation ASA classification: 2-Mild systemic disease Is this case an emergency?: No
[2021-05-24] MEDS ORDERED: LACTATED RINGERS 300 ML IV ONE (09:05)
[2021-05-24 09:21] VITALS: BP 100/66
--- NOTE | 2021-05-24 09:39 | ANESTHESIA POST OP EVALUATION ---
Anesthesia Post Eval - Post Anesthesia Eval Vitals: Last Vital Signs Temp 36.0 C L 05/24/21 09:20 Pulse 77 05/24/21 09:20 Resp 16 05/24/21 09:20 BP 100/66 05/24/21 09:20 Pulse Ox 100 05/24/21 09:20 CV Function Including HR & BP: Stable Pain Control: Satisfactory Nausea & Vomiting: Negative Mental Status: Baseline Respiratory Status: Airway Patent Hydration Status: Satisfactory Anesthesia Complications: None
== END 2021-05-24 07:01 | disposition home or self-care (01) ==
LOC: SDS 07:00
PROVIDERS: ATTEND Surgery
DX: Z12.11 Encounter for screening for malignant neoplasm of colon (principal); K57.30 Diverticulosis of large intestine without perforation or abscess without bleeding; K64.8 Other hemorrhoids; Z86.010 Personal history of colon polyps
CPT/HCPCS: G0105; J7120

== ENCOUNTER 2021-05-29 13:16 | Outpatient (CLI) | payer MEDICARE, OTHER ==
--- NOTE | 2021-05-30 07:06 | Mammography Report ---
BILATERAL DIGITAL SCREENING MAMMOGRAM 3D/2D: 05/29/2021 CLINICAL: Routine screening. Comparison is made to exams dated: 02/09/2020 mammogram, 05/06/2015 mammogram, 10/20/2012 mammogram, an d 05/17/2009 mammogram - [facility]. The tissue of both breasts is predominantly fat ty. There is a stable benign focal asymmetry in the left breast. No significant masses, calcifications, or other findings are seen in either breast. There has been no significant interval change. IMPRESSION: BENIGN There is no mammographic evidence of malignancy. A 1 year screening mammogram is recommended. This exam was interpreted at Station ID: [id number]. NOTE: For mammograms, a report in lay terms will be sent to the patient. Approximately 15% of breast malignancies will not be visualized mammographically. In the management of a palpable breast mass, a negative mammogram must not discourage biopsy of a clinically suspicious lesion. Electronically Signed By: Liang De La Vega acr/penrad:05/29/2021 14:12:33 ACR BI-RADS Category 2: Benign Finding(s) 3342F PARENCHYMAL PATTERN: (F) - The breast(s) demonstrate(s) diffuse fatty replacement. BI-RADS CATEGORY: (2) - 2 RECOMMENDATION: (ANNUAL) - Recommend routine annual screening mammography. [id number] 1 year screening LATERALITY: (B)
== END 2021-05-29 13:17 | disposition home or self-care (01) ==
LOC: DI.N 13:16
DX: Z12.31 Encounter for screening mammogram for malignant neoplasm of breast (principal)

== ENCOUNTER 2021-07-18 12:16 | Outpatient (CLI) | payer MEDICARE, OTHER ==
--- NOTE | 2021-07-18 11:43 | CARDIAC PROCEDURE NOTE ---
Stress Test Report Service Date: 07/18/21 Service Time: 12:30 Ordering Provider: Luz Tate PA-C Indication for Test: Assess for an ischemic contribution to increasing exertional dyspnea. Significant Medical History: Deysi is referred for a treadmill stress test with myocardial perfusion imaging, to assess for an ischemic contribution to gradually progressive exertional and positional shortness of breath. She underwent an ETT in 2016 for chest discomfort that was negative with good aerobic capacity. In 2018 she had an echocardiogram (for reasons that she cannot recall) that was within normal limits. She describes gradual onset of episodic shortness of breath with both physical exertion and with certain positional changes, such as leaning over to tie her shoes. Her exertional dyspnea has been slowly progressive over the past "couple of years", though she remains active, able to complete her activities of daily living at home and still able to walk occasionally in her neighborhood; she questions whether her exertional limitiation could simply be due to not being active enough. She denies recent occurrence of chest discomfort, lightheadedness, palpitations, nocturnal dyspnea and edema. Cardiac Risk Factors: Deysi has a history of borderline hyperlipidemia, but she denies a history of hypertension, diabetes, family history of coronary heart disease and she has never been a cigarette smoker. Type of Stress Test: ETT with Myocardial Perfusion Imaging Procedure: -Exercise Treadmill Test- After signing informed consent, the patient underwent resting SPECT imaging and then performed treadmill exercise using a Faisal protocol. The patient exercised for 4 minutes 34 seconds and achieved a peak heart rate of 148 (100 percent predicted maximum heart rate for age), and an estimated workload of 6.5 METS. The test was terminated due to achieving target heart rate, with moderate fatigue/shortness of breath. Resting heart rate: 87 Peak heart rate: 148 Normal response to exercise. Resting BP: 117/81 Peak BP: 168/90 Normal resting BP with physiologic response of systolic BP to exercise, with abnormal increase of diastolic BP. Rhythm during exercise: Sinus rhythm throughout. Symptoms: She described onset of dyspnea in mid stage 1, with subsequent increase that appeared to be headed toward becoming limiting; in stage 2 she reported some easing off of her dyspnea, and she might have been able to walk longer if we had not terminated the protocol due to achieving target HR and receiving the stress Myoview injection. She denied experiencing any chest discomfort whatsoever. Standing EKG at rest showed normal sinus rhythm with left axis deviation/probable left anterior fascicular block. EKG at peak stress showed J-point depression with upsloping ST segments, NOT meeting EKG criteria for ischemia. In Recovery HR rapidly and normally decreased toward baseline, with slower decrease in BP (146/87 at last measurement at 6:00). Nuclear imaging was performed at rest and with stress and image interpretation will be reported separately. Salvador Adams MD, was present throughout this treadmill stress study and supervised it in its entirety. Summary: 1) Exercise tolerance probably near average for age as evidenced by TINO of 16.7% (and noting that patient likely could have continued somewhat longer). 2) Abnormal resting EKG. 3) Adequate level of exercise was achieved on this treadmill stress test. 4) Normal systolic BP response to exercise. 5) No ischemic changes by EKG criteria were seen at peak stress. 6) Nuclear image interpretation to be reported separately. PRELIMINARY CONCLUSIONS: 1) This is likely a low risk treadmill stress myocardial perfusion imaging stud y, with exercise capacity nearly average for age and no concern for ischemic symptoms nor EKG findings. 2) She had a "biphasic" exertional dyspnea response, becoming significant in late stage 1, then decreasing in stage 2; conceivably this represents a component of poor conditioning, that she should be able to safely address, with increased walking.
--- NOTE | 2021-07-18 16:57 | Nuclear Medicine Report ---
PROCEDURE: Rest and exercise myocardial perfusion SPECT with gated imaging and ejection fraction INDICATIONS: EXERTIONAL SHORTNESS OF BREATH RADIOPHARMACEUTICAL: 11.9 mCi Tc-99m Myoview IV at rest and 36.7 mCi Tc-99m Myoview IV at peak exerc ise. [id number] was performed. TECHNIQUE: Radiopharmaceutical was injected at peak stress test, and also at rest. SPECT images wer e obtained. SPECT myocardial perfusion images were displayed in short axis, horizontal long axis, an d vertical long axis views. Gated images were reviewed using Auto[employer] software. COMPARISON: Myocardial perfusion scan, 02/14/2012. FINDINGS: Raw data: There is good myocardial labeling by radiotracer. No significant motion artifacts. Lung- to-heart ratio is 0.28 (normal is less than 0.46 for tetrafosmin tracer). There is prominent breast attenuation artifact. Left ventricle function: Gated images demonstrate normal left ventricle wall thickening. No segment al wall motion abnormality. No transient ischemic dilation; TID is 1.00 (normal less than 1.30). Th e left ventricle resting end-diastolic volume is normal. Left ventricle stress ejection fraction is > 70%; normal values are above 45%. Myocardial perfusion: There is a moderate size, moderately severe, partially reversible perfusion de fect in the apex of the left ventricle. On prone imaging, the defect is more pronounced. IMPRESSION: 1. There is a moderate size, moderately severe, partially reversible perfusion defect in the apex of the left ventricle, suspicious for myocardial ischemia. A differential diagnosis is shifting breast a rtifact. A similar defect was described on the prior exam dated 02/14/2012. 2. Normal left ventricular volume and systolic function. The left ventricle contracts normally. No se gmental motion medically in the left ventricular apex. 3. Please correlate with stress EKG result. PQRS ATTESTATIONS: Measure 322 - Is this imaging test primarily performed on a low-risk surgery patient for preoperative evaluation within 30 days preceding their low-risk non-cardiac surgery? Low-risk surgery is defined as cardiac or myocardial infarction less than 1%, including (but not limited to) endoscopic pr ocedures, superficial procedures, cataract surgery, and excisional breast surgery: Answer: No Measure 323 - Is this imaging test performed primarily for the monitoring of an asymptomatic patient who had percutaneous coronary intervention on the visit date or within 2 years of the visit date? An swer: No Measure 324 - Is this imaging test performed primarily for the initial detection and risk assessment on an asymptomatic, low coronary heart disease patient? Low CHD risk definition = clinicians should consider the maximum number of available patient factors used to estimate risk based on [place] (A TP III criteria), typically age, gender, diabetes, smoking status, and use of blood pressure medicati on, and integrate age appropriate estimates for missing elements, such as LDL or standard blood press ure. Answer: No Reviewed by: Anthony Blackburn MD on 07/18/2021 4:55 PM PDT Approved by: Anthony Blackburn MD on 07/18/2021 4:55 PM PDT Station ID: [id number]
== END 2021-07-18 12:17 | disposition home or self-care (01) ==
LOC: DI 12:16
PROVIDERS: ATTEND Physician Assistant Medical
DX: R06.09 Other forms of dyspnea (principal); E78.5 Hyperlipidemia, unspecified; R94.31 Abnormal electrocardiogram [ECG] [EKG]
CPT/HCPCS: 78452; 93017; A9500

== ENCOUNTER 2021-08-09 08:00 | Outpatient (CLI) | payer MEDICARE, OTHER ==
--- NOTE | 2021-08-09 15:53 | XRAY Report ---
PROCEDURE: Foot 3 View RT INDICATIONS: R FOOT PX TECHNIQUE: 3 views of the foot were acquired. COMPARISON: None FINDINGS: Bones: No fractures or dislocations. No suspicious bony lesions. Soft tissues: No tibiotalar joint effusion. Achilles tendon appears normal. IMPRESSION: No visualized acute fracture or dislocation. However, occult injury cannot be excluded. Recommend luzma rt interval imaging follow-up in 7-10 days as clinically indicated for additional evaluation. Reviewed by: Madhuri Iglesias MD on 08/09/2021 2:52 PM [facility] Approved by: Madhuri Iglesias MD on 08/09/2021 2:52 PM [facility] Station ID: [id number]
== END 2021-08-09 23:59 | disposition home or self-care (01) ==
LOC: DI.N 08:00
PROVIDERS: ATTEND Family Medicine
DX: M79.671 Pain in right foot (principal)

== ENCOUNTER 2022-02-14 08:00 | Outpatient (CLI) | payer MEDICARE, OTHER | END 2022-02-14 23:59 | disposition home or self-care (01) | LOC: LAB.WCP 08:00 | PROVIDERS: ATTEND Physician Assistant Medical | DX: R30.0 Dysuria (principal) | CPT/HCPCS: 87086 ==

== ENCOUNTER 2022-05-03 10:49 | Outpatient (CLI) | payer MEDICARE, OTHER ==
[2022-05-03 11:09] LABS: BASOPHILS % (AUTO) 0.2 %; EOSINOPHILS # (AUTO) 0.1 10^3/uL (0.0-0.7); EOSINOPHILS % (AUTO) 3.2 %; HCT - HEMATOCRIT 40.8 % (37.0-47.0); HGB - HEMOGLOBIN 13.2 g/dL (12.0-16.0); LYMPHOCYTES # (AUTO) 1.1 10^3/uL (1.5-3.5); LYMPHOCYTES % (AUTO) 26.6 %; MEAN CORPUSCULAR HEMOGLOBIN 28.9 pg (27.0-31.0); MEAN CORPUSCULAR HGB CONC 32.4 g/dL (32.0-36.0); MEAN CORPUSCULAR VOLUME 89.3 fL (81.0-99.0); MEAN PLATELET VOLUME 8.8 fL (7.9-10.8); MONOCYTES # (AUTO) 0.3 10^3/uL (0.0-1.0); MONOCYTES % (AUTO) 8.4 %; NEUTROPHILS # (AUTO) 2.5 10^3/uL (1.5-6.6); NEUTROPHILS % (AUTO) 61.6 %; PLT - PLATELET COUNT 167 10^3/uL (130-450); RED BLOOD COUNT 4.57 10^6/uL (4.20-5.40); RED CELL DISTRIBUTION WIDTH 13.5 % (12.0-15.0); WHITE BLOOD COUNT 4.1 x10^3/uL (4.8-10.8)
[2022-05-03 11:32] LABS: ALBUMIN 4.2 g/dL (3.2-5.5); ALBUMIN/GLOBULIN RATIO 1.7 (1.0-2.2); ALKALINE PHOSPHATASE 77 IU/L (42-121); ALT ALANINE AMINOTRANSFERASE 16 IU/L (10-60); AST ASPARTATE AMINOTRANSFERASE 16 IU/L (10-42); BILIRUBIN,TOTAL 0.6 mg/dL (0.2-1.0); BUN - BLOOD UREA NITROGEN 20 mg/dL (6-20); CALCIUM 9.3 mg/dL (8.5-10.3); CARBON DIOXIDE - CO2 28 mmol/L (21-32); CHLORIDE 104 mmol/L (101-111); CHOL/HDL RATIO 3.1 (<4.4); CHOLESTEROL 226 mg/dL; CREATININE 0.7 mg/dL (0.4-1.0); GFR - MDRD 82 (>89); GLUCOSE 97 mg/dL (70-100); HDL CHOLESTEROL 72 mg/dL; LDL CHOLESTEROL,CALCULATED 145 mg/dL; POTASSIUM 4.5 mmol/L (3.5-5.0); SODIUM 138 mmol/L (135-145); TOTAL PROTEIN 6.7 g/dL (6.7-8.2); TRIGLYCERIDES 47 mg/dL; VLDL CHOLESTEROL 9 mg/dL
[2022-05-03 11:41] LABS: THYROID STIMULATING HORMONE 0.86 uIU/mL (0.34-5.60)
== END 2022-05-03 10:50 | disposition home or self-care (01) ==
LOC: LAB 10:49
PROVIDERS: ATTEND Physician Assistant Medical
DX: E78.5 Hyperlipidemia, unspecified (principal); E03.9 Hypothyroidism, unspecified; J45.909 Unspecified asthma, uncomplicated; R30.0 Dysuria
CPT/HCPCS: 36415; 80053; 80061; 83721; 84443; 85025; 87086

== ENCOUNTER 2022-05-16 15:53 | Outpatient (CLI) | payer MEDICARE, OTHER ==
[2022-05-16] MEDS ORDERED: iohexoL-300 100 ML VIAL ONE (16:03)
--- NOTE | 2022-05-16 17:22 | CT Report ---
PROCEDURE: SOFT TISSUE NECK W INDICATIONS: NECK MASS, THYROID MASS CONTRAST: 100mL Omni 300 TECHNIQUE: After the administration of intravenous contrast, 3.0 mm axial sections acquired from the sella to th e aortic arch. Additional oblique axial 3.0 mm sections acquired through the pharynx. 3 mm thick co rosenda reformats were generated. For radiation dose reduction, the following was used: automated exp osure control, adjustment of mA and/or kV according to patient size. COMPARISON: Correlation is made with overlapping portions of chest CT, 04/25/2020. FINDINGS: Image quality: Excellent. Lymph nodes: No enlarged lymph nodes seen throughout the neck. Vessels: A soft tissue marker is placed upon area of clinical concern involving the right inferior n liseth, as on series 3 image 83, and on series 5 image 49. No masses are seen at this site, although the re is tortuosity of the right brachiocephalic artery. Visualized vasculature appears patent. Neck spaces: The oropharynx, nasopharynx, and pharynx demonstrate no mucosal lesions. The vocal cords, false voca l cords, pyriform sinuses, epiglottis, vallecula, and tongue base all appear normal. Glands: The parotid and submandibular glands appear normal. The thyroid is normal in size and there are no incidental findings. Miscellaneous: Visualized brain and orbits appear normal. Lung apices appear clear. Superficial so ft tissues appear normal. Bones: No suspicious bony lesions. Visualized sinuses and mastoids appear unremarkable. IMPRESSION: Tortuosity of the right brachiocephalic artery is seen at the site of clinical concern. No masses are seen at this site. No masses are seen elsewhere. No enlarged lymph nodes are seen. No significant thyroid abnormality is seen. Reviewed by: Leonel Carter MD on 05/16/2022 4:20 PM [place] Approved by: Leonel Carter MD on 05/16/2022 4:20 PM [facility] Station ID: [id number]
[2022-05-16] MEDS ORDERED: iohexoL-300 100 ML VIAL IVP ONE (18:24)
--- NOTE | 2022-05-17 13:02 | Ultrasound Report ---
PROCEDURE: Head or Neck Soft Tissue INDICATIONS: NECK MASS TECHNIQUE: Real time scanning was performed of the neck region of interest, with image documentation . COMPARISON: Ultrasound thyroid, 10/22/2020. FINDINGS: Right: Thyroid lobe measures 5.0 x 1.4 x 2.1 cm, and is heterogeneous in echotexture. There are mul tiple nodules. Left: Thyroid lobe measures 5.0 x 1.8 x 1.7 cm, and is heterogeneous in echotexture. There are mult iple nodules. Isthmus: 5.6 mm thick. Nodule number: 1 Location: Right mid anterior Size: 1.7 x 1.0 x 1.2 cm.; Previously 1.1 x 0.8 x 1.1 cm Composition: Solid Echogenicity: Hypoechoic Shape: wider than tall. Margins: Smooth Echogenic foci: None Total points: 4 ACR TI-RADS category: TI-RADS 4 Nodule number: 2 Location: Right superior lateral Size: 1.1 x 0.6 x 1.0 cm.; Previously 1.2 x 0.7 x 1.1 cm Composition: Solid Echogenicity: Hypoechoic Shape: wider than tall. Margins: Smooth Echogenic foci: Punctate Total points: 7 ACR TI-RADS category: TI-RADS 5 Nodule number: 3 Location: Right inferior Size: 0.6 x 0.5 x 0.6 cm.; Previously 0.8 x 0.5 x 0.9 cm Composition: Solid Echogenicity: Hypoechoic Shape: wider than tall. Margins: Smooth Echogenic foci: None Total points: 4 ACR TI-RADS category: TI-RADS 4 Nodule number: 4 Location: Left mid Size: 1.2 x 0.8 x 1.2 cm.; Previously 1.2 x 0.8 x 1.2 cm Composition: Solid Echogenicity: Hypoechoic Shape: wider than tall. Margins: Smooth Echogenic foci: None Total points: 4 ACR TI-RADS category: TI-RADS 4 Nodule number: 5 Location: Left anterior mid Size: 1.5 x 0.6 x 1.1 cm.; Previously 1.3 x 0.6 x 1.0 cm Composition: Solid Echogenicity: Hypoechoic Shape: wider than tall. Margins: Smooth Echogenic foci: Punctate Total points: 7 ACR TI-RADS category: TI-RADS 5 Nodule number: 6 Location: Left inferior Size: 0.6 x 0.6 x 0.7 cm.; Previously 0.7 x 0.7 x 0.7 cm Composition: Solid Echogenicity: Hypoechoic Shape: wider than tall. Margins: Smooth Echogenic foci: Macrocalcification Total points: 5 ACR TI-RADS category: TI-RADS 4 IMPRESSION: Multiple thyroid nodules are present bilaterally, overall stable. Please see enclosed fo llow-up recommendation. ACR TI-RADS definitions and recommendations: TI-RADS 1 (benign): 0 points. FNA not needed. TI-RADS 2 (not suspicious): 2 points. FNA not needed. TI-RADS 3 (mildly suspicious): 3 points. "FNA if 2.5 cm or larger, follow up if 1.5 cm or larger (at 1, 3, and 5 years). TI-RADS 4 (moderately suspicious): 4-6 points. "FNA if 1.5 cm or larger, follow up if 1 cm or larger (at 1, 2, 3, and 5 years). TI-RADS 5 (highly suspicious): 7 points or more. "FNA if 1 cm or larger, follow up if 0.5 cm or larger (every year for 5 years). Reviewed by: Anthony Blackburn MD on 05/17/2022 1:01 PM PST Approved by: Anthony Blackburn MD on 05/17/2022 1:01 PM PST Station ID: [id number]
== END 2022-05-16 15:54 | disposition home or self-care (01) ==
LOC: DI 15:53
PROVIDERS: ATTEND Physician Assistant Medical
DX: E04.2 Nontoxic multinodular goiter (principal); I77.1 Stricture of artery
CPT/HCPCS: 70491; 76536; Q9967

== ENCOUNTER 2022-09-19 12:27 | Outpatient (CLI) | payer MEDICARE, OTHER ==
--- NOTE | 2022-09-20 12:18 | Mammography Report ---
BILATERAL DIGITAL SCREENING MAMMOGRAM 3D/2D: 09/19/2022 CLINICAL: Routine screening. Comparison is made to exams dated: 05/29/2021 mammogram, 02/09/2020 mammogram, 05/06/2015 mammogram, an d 10/20/2012 mammogram - [facility]. Both breasts are almost entirely fatty (category a/<25% glandular tissue). No significant masses, calcifications, or other findings are seen in either breast. IMPRESSION: NEGATIVE There is no mammographic evidence of malignancy. A 1 year screening mammogram is recommended. Based on the Tyrer Cuzick model (a risk assessment model) the patients lifetime risk is 5.6% and her 10 year risk is 4.6%. According to the ACR, ACS, and NCCN guidelines, an annual breast MRI exam julee g with mammogram is recommended if the patients lifetime risk is 20% or greater. This exam was interpreted at Station ID: [id number]. NOTE: For mammograms, a report in lay terms will be sent to the patient. Approximately 15% of breast malignancies will not be visualized mammographically. In the management of a palpable breast mass, a negative mammogram must not discourage biopsy of a clinically suspicious lesion. Electronically Signed By: Adam Wells M.D. aty/juanrad:09/19/2022 17:50:58 ACR BI-RADS Category 1: Negative 3341F PARENCHYMAL PATTERN: (F) - The breast(s) demonstrate(s) diffuse fatty replacement. BI-RADS CATEGORY: (1) - 1 Mammogram [id number] 1 year screening LATERALITY: (B)
== END 2022-09-19 12:28 | disposition home or self-care (01) ==
LOC: DI 12:27
DX: Z12.31 Encounter for screening mammogram for malignant neoplasm of breast (principal)

== ENCOUNTER 2022-12-03 09:50 | Outpatient (CLI) | payer MEDICARE, OTHER ==
[2022-12-03 10:03] LABS: BASOPHILS % (AUTO) 0.5 %; EOSINOPHILS # (AUTO) 0.4 10^3/uL (0.0-0.7); EOSINOPHILS % (AUTO) 10.4 %; HCT - HEMATOCRIT 42.1 % (37.0-47.0); HGB - HEMOGLOBIN 13.7 g/dL (12.0-16.0); LYMPHOCYTES # (AUTO) 1.2 10^3/uL (1.5-3.5); LYMPHOCYTES % (AUTO) 30.1 %; MEAN CORPUSCULAR HEMOGLOBIN 29.2 pg (27.0-31.0); MEAN CORPUSCULAR HGB CONC 32.5 g/dL (32.0-36.0); MEAN CORPUSCULAR VOLUME 89.8 fL (81.0-99.0); MEAN PLATELET VOLUME 8.8 fL (7.9-10.8); MONOCYTES # (AUTO) 0.4 10^3/uL (0.0-1.0); MONOCYTES % (AUTO) 9.7 %; NEUTROPHILS % (AUTO) 49.1 %; PLT - PLATELET COUNT 141 10^3/uL (130-450); RED BLOOD COUNT 4.69 10^6/uL (4.20-5.40); RED CELL DISTRIBUTION WIDTH 13.5 % (12.0-15.0)
[2022-12-03 10:17] LABS: ALBUMIN 4.1 g/dL (3.2-5.5); ALBUMIN/GLOBULIN RATIO 1.5 (1.0-2.2); BILIRUBIN,TOTAL 0.4 mg/dL (0.2-1.0); CALCIUM 9.8 mg/dL (8.5-10.3); CREATININE 0.8 mg/dL (0.6-1.3); POTASSIUM 3.7 mmol/L (3.5-4.5); TOTAL PROTEIN 6.8 g/dL (6.4-8.9)
[2022-12-03 10:33] LABS: THYROID STIMULATING HORMONE 2.21 uIU/mL (0.34-5.60)
== END 2022-12-03 09:51 | disposition home or self-care (01) ==
LOC: LAB 09:50
PROVIDERS: ATTEND Nurse Practitioner Family
DX: R53.83 Other fatigue (principal)
CPT/HCPCS: 36415; 80053; 84443; 85025

== ENCOUNTER 2023-01-18 09:40 | Outpatient (CLI) | payer MEDICARE, OTHER ==
--- NOTE | 2023-01-18 13:48 | XRAY Report ---
PROCEDURE: Chest 2 View X-Ray INDICATIONS: URI,ASTHMA TECHNIQUE: 2 views of the chest were obtained. COMPARISON: None. FINDINGS: Surgical changes and devices: None. Lungs and pleura: Minimal blunting the left costophrenic angle with atelectasis and or infiltrate Mediastinum: Mediastinal contours appear normal. Heart size is normal. Bones and chest wall: No suspicious bony lesions. Overlying soft tissues appear unremarkable. IMPRESSION: Possible small left pleural effusion with atelectasis and or infiltrate Reviewed by: Jamshid Chen MD on 01/18/2023 12:47 PM [facility] Approved by: Jamshid Chen MD on 01/18/2023 12:47 PM [facility] Station ID: [id number]
== END 2023-01-18 09:41 | disposition home or self-care (01) ==
LOC: DI 09:40
PROVIDERS: ATTEND Physician Assistant Medical
DX: J06.9 Acute upper respiratory infection, unspecified (principal); J45.909 Unspecified asthma, uncomplicated

== ENCOUNTER 2023-02-14 10:47 | Outpatient (CLI) | payer MEDICARE, OTHER | END 2023-02-14 10:48 | disposition home or self-care (01) | LOC: DI 10:47 | PROVIDERS: ATTEND Physician Assistant Medical | DX: Z53.9 Procedure and treatment not carried out, unspecified reason (principal) ==

== ENCOUNTER 2023-02-18 10:32 | Outpatient (CLI) | payer MEDICARE, OTHER ==
--- NOTE | 2023-02-18 11:37 | XRAY Report ---
PROCEDURE: Chest 2 View X-Ray INDICATIONS: URI TECHNIQUE: 2 views of the chest were acquired. COMPARISON: None. FINDINGS: Surgical changes and devices: None. Lungs and pleura: No pleural effusions or pneumothorax. Lungs are clear. Blunting of the costophr enic angles unchanged. Mediastinum: Mediastinal contours appear normal. Heart size is normal. Bones and chest wall: No suspicious bony lesions. Overlying soft tissues appear unremarkable. IMPRESSION: No acute cardiopulmonary process. Reviewed by: Liang De La Vega on 02/18/2023 11:36 AM [facility] Approved by: Liang De La Vega on 02/18/2023 11:36 AM [facility] Station ID: [id number]
== END 2023-02-18 10:33 | disposition home or self-care (01) ==
LOC: DI 10:32
PROVIDERS: ATTEND Physician Assistant Medical
DX: J06.9 Acute upper respiratory infection, unspecified (principal)

== ENCOUNTER 2023-03-14 12:03 | Outpatient (CLI) | payer MEDICARE, OTHER ==
--- NOTE | 2023-03-14 18:33 | XRAY Report ---
PROCEDURE: Knee 3 View BILAT INDICATIONS: RIGHT KNEE PAIN TECHNIQUE: 3 views of each of the bilateral knee(s) were acquired. COMPARISON: 06/27/2013 FINDINGS: Bones: No fractures or dislocations. No suspicious bony lesions. Mild tricompartmental degenerati ve changes of the bilateral knee. No suspicious osseous erosions. Soft tissues: No knee joint effusion. No suspicious soft tissue calcifications or masses. There are bilateral right greater than left serpiginous soft tissue densities in the lower thighs posteriorly as well as the bilateral lower legs likely representing varicosities. IMPRESSION: No acute bony abnormality. Mild tricompartmental osteoarthrosis. Reviewed by: Adam Wells MD on 03/14/2023 6:32 PM PST Approved by: Adam Wells MD on 03/14/2023 6:32 PM PST Station ID: [id number]
== END 2023-03-14 12:04 | disposition home or self-care (01) ==
LOC: DI 12:03
PROVIDERS: ATTEND Physician Assistant Medical
DX: M17.0 Bilateral primary osteoarthritis of knee (principal)

== ENCOUNTER 2023-04-09 10:08 | Outpatient (CLI) | payer MEDICARE, OTHER ==
[2023-04-09 10:20] LABS: BASOPHILS % (AUTO) 0.5 %; EOSINOPHILS # (AUTO) 0.2 10^3/uL (0.0-0.7); HCT - HEMATOCRIT 42.1 % (37.0-47.0); HGB - HEMOGLOBIN 13.6 g/dL (12.0-16.0); LYMPHOCYTES # (AUTO) 1.2 10^3/uL (1.5-3.5); LYMPHOCYTES % (AUTO) 28.2 %; MEAN CORPUSCULAR HEMOGLOBIN 28.9 pg (27.0-31.0); MEAN CORPUSCULAR HGB CONC 32.3 g/dL (32.0-36.0); MEAN CORPUSCULAR VOLUME 89.4 fL (81.0-99.0); MEAN PLATELET VOLUME 9.1 fL (7.9-10.8); MONOCYTES # (AUTO) 0.4 10^3/uL (0.0-1.0); MONOCYTES % (AUTO) 8.3 %; NEUTROPHILS # (AUTO) 2.5 10^3/uL (1.5-6.6); NEUTROPHILS % (AUTO) 58.8 %; PLT - PLATELET COUNT 164 10^3/uL (130-450); RED BLOOD COUNT 4.71 10^6/uL (4.20-5.40); RED CELL DISTRIBUTION WIDTH 13.4 % (12.0-15.0); WHITE BLOOD COUNT 4.2 x10^3/uL (4.8-10.8)
[2023-04-09 10:37] LABS: ALBUMIN 4.2 g/dL (3.2-5.5); ALBUMIN/GLOBULIN RATIO 1.7 (1.0-2.2); ALKALINE PHOSPHATASE 79 IU/L (42-121); ALT ALANINE AMINOTRANSFERASE 14 IU/L (10-60); AST ASPARTATE AMINOTRANSFERASE 15 IU/L (10-42); BILIRUBIN,TOTAL 0.3 mg/dL (0.2-1.0); BUN - BLOOD UREA NITROGEN 21 mg/dL (6-20); CALCIUM 9.7 mg/dL (8.5-10.3); CARBON DIOXIDE - CO2 30 mmol/L (21-32); CHLORIDE 107 mmol/L (101-111); CHOL/HDL RATIO 3.8 (<4.4); CHOLESTEROL 245 mg/dL; CREATININE 0.9 mg/dL (0.6-1.3); GFR - MDRD 61 (>89); GLUCOSE 91 mg/dL (74-104); HDL CHOLESTEROL 65 mg/dL; LDL CHOLESTEROL,CALCULATED 164 mg/dL; LDL/HDL RATIO 2.5 (<4.4); POTASSIUM 4.7 mmol/L (3.5-4.5); SODIUM 140 mmol/L (135-145); TOTAL PROTEIN 6.7 g/dL (6.4-8.9); TRIGLYCERIDES 79 mg/dL (48-352); VLDL CHOLESTEROL 16 mg/dL
[2023-04-09 10:49] LABS: THYROID STIMULATING HORMONE 1.19 uIU/mL (0.34-5.60)
== END 2023-04-09 10:09 | disposition home or self-care (01) ==
LOC: LAB 10:08
PROVIDERS: ATTEND Physician Assistant Medical
DX: E78.5 Hyperlipidemia, unspecified (principal); E03.9 Hypothyroidism, unspecified; K21.9 Gastro-esophageal reflux disease without esophagitis
CPT/HCPCS: 36415; 80053; 80061; 83721; 84443; 85025

== ENCOUNTER 2023-04-24 10:09 | Outpatient (CLI) | payer MEDICARE, OTHER ==
[2023-04-24 11:20] LABS: FECAL OCCULT BLOOD (FIT) POSITIVE (NEGATIVE); H. PYLORIS ANTIGEN STL NEGATIVE (Negative)
[2023-04-26 12:09] LABS: GIARDIA LAMBLIA AG EIA Negative (Negative)
== END 2023-04-24 10:10 | disposition home or self-care (01) ==
LOC: LAB.R 10:09
PROVIDERS: ATTEND Physician Assistant Medical
DX: K52.9 Noninfective gastroenteritis and colitis, unspecified (principal)
CPT/HCPCS: 82274; 83993; 87045; 87046; 87177; 87209; 87329; 87338; 87427; 87493

== ENCOUNTER 2023-06-24 19:27 | Emergency (ER) | payer MEDICARE, OTHER ==
[2023-06-24 19:55] VITALS: BP 137/70; O2SAT 96
--- NOTE | 2023-06-24 20:36 | ED Physician Documentation ---
PD HPI LOWER EXT INJURY - Stated complaint Stated Complaint: RT FOOT PX - Chief complaint Chief Complaint: Ext Problem - History obtained from History obtained from: Patient - Additional information Additional information: The patient comes to the emergency department chief complaint of right second toe pain after striking it on a door jam while walking. She states she has been struggling with corns on her toes on that foot and it has been altering the way she walks. She states she has been swinging her foot out a little differently than usual and she believes this is why she has had more problems bumping into things when she walks. She states that this just happened this afternoon and she has noticed a little swelling and a bruise and it hurts to bend it and she wanted to get her toe checked out. No other injuries or complaints at this time. 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: Other HEENT: Tonsil/Adenoidectomy - Present Medications Home Medications: Ambulatory Orders Medication Instructions Recorded Confirmed Cyclobenzaprine HCl 5 - 10 mg PO TID PRN 07/03/16 06/24/23 Sertraline HCl [Zoloft] 150 mg ORAL DAILY 08/08/16 06/24/23 Famotidine [Pepcid] 20 mg PO DAILY 02/23/20 06/24/23 Hyoscyamine [Levsin] 0.125 mg SL PRN PRN 06/24/23 06/24/23 Montelukast [Singulair] 10 mg PO DAILY 06/24/23 06/24/23 Pantoprazole [Protonix] 40 mg PO DAILY 06/24/23 06/24/23 traZODone [Desyrel] 50 mg PO HS 06/24/23 06/24/23 - Allergies Allergies/Adverse Reactions: Allergies Allergy/AdvReac Type Severity Reaction Status Date / Time No Known Drug Allergies Allergy Verified 06/24/23 19:41 - Social History Does the pt smoke?: No Smoking Status: Never smoker Does the pt drink ETOH?: Yes Does the pt have substance abuse?: No - Immunizations Immunizations are current?: Yes - POLST Patient has POLST: No PD ED PE NORMAL - Vitals Vital signs reviewed: Yes - General General: Alert and oriented X 3, No acute distress, Well developed/nourished - HEENT HEENT: Atraumatic, PERRL, EOMI, Moist mucous membranes - Neck Neck: Supple, no meningeal sign - Cardiac Cardiac: Strong equal pulses - Respiratory Respiratory: No respiratory distress - Derm Derm: Normal color, Warm and dry, No rash - Extremities Extremities: No deformity, Other (Slight edema of right second toe with mild contusion over the dorsum. No deformity. No tenderness to palpation. The patient is ambulatory without a limping gait.) - Neuro Neuro: No motor deficit, No sensory deficit, Other (Grossly intact) - Psych Psych: Normal mood, Normal affect Results - Vitals Vitals: Vital Signs - 24 hr 06/24/23 19:36 Temperature 36.9 C Heart Rate 90 Respiratory 16 Rate Blood Pressure 137/70 H O2 Saturation 96 Oxygen O2 Source Room air - Rads (name of study) Right foot x-ray series Relevant Findings:: EMP independent interpretation of test (Negative) PD Medical Decision Making - ED course Complexity details: reviewed results, re-evaluated patient, considered differential, d/w patient ED course: The patient's x-ray looked good. I discussed symptomatic management with her and the usual indications for return. Departure - Departure Disposition: 01 Home, Self Care Clinical Impression: Contusion of toe of right foot Qualifiers: Encounter type: initial encounter Toe: lesser toe Damage to nail status: without damage Qualified Code(s): S90.121A - Contusion of right lesser toe(s) without damage to nail, initial encounter Condition: Stable Instructions: ED Contusion Lower Ext Comments: Your x-ray looks great. You likely bruised the affected toe and may be jammed the joint. This will get better on its own in the next several days to week. You may use ice packs and elevate the foot if needed to help with discomfort. You may also take ibuprofen and/or Tylenol as needed as well. Please follow-up with your primary doctor if needed.
--- NOTE | 2023-06-24 20:50 | XRAY Report ---
PROCEDURE: Foot 3+V RT INDICATIONS: stubbed 2nd toe TECHNIQUE: 3 views of the foot were acquired. COMPARISON: None. FINDINGS: Bones: No fractures or dislocations. Chronic flattening of the second metatarsal head with degenerat mera spur formation. Tiny plantar calcaneal spur. Mild arthritic changes. No suspicious bony lesions. Soft tissues: No tibiotalar joint effusion. Achilles tendon appears normal. IMPRESSION: No visible displaced fracture. Reviewed by: Concetta Urena MD on 06/24/2023 8:49 PM PDT Approved by: Concetta Urena MD on 06/24/2023 8:49 PM PDT Station ID: [id number]
== END 2023-06-24 20:42 | disposition home or self-care (01) ==
LOC: ED 19:27
DX: S90.121A Contusion of right lesser toe(s) without damage to nail, initial encounter (principal); W22.09XA Striking against other stationary object, initial encounter; Y93.01 Activity, walking, marching and hiking
CPT/HCPCS: 99283

== ENCOUNTER 2023-08-22 11:38 | Outpatient (CLI) | payer MEDICARE, OTHER ==
--- NOTE | 2023-08-22 18:31 | XRAY Report ---
PROCEDURE: Ankle 3+V LT INDICATIONS: LEFT ANKLE EFFUSION TECHNIQUE: 3 views of the ankle were acquired. COMPARISON: None. FINDINGS: Bones: No fractures or dislocations. Ankle mortise is normally aligned. Osteoarthritic changes are seen in midfoot and hindfoot joints. Well-defined plantar and dorsal calcaneal enthesophytes are seen . No suspicious bony lesions. Soft tissues: Mild ankle soft tissue swelling is noted. No tibiotalar joint effusion. Achilles tend on appears normal. IMPRESSION: No acute bony abnormality. Ankle soft tissue swelling. Mild midfoot and hindfoot joint osteoarthritis. Calcaneal enthesophytes. Reviewed by: Drake Hough MD on 08/22/2023 6:30 PM PDT Approved by: Drake Hough MD on 08/22/2023 6:30 PM PDT Station ID: [id number]
== END 2023-08-22 11:39 | disposition home or self-care (01) ==
LOC: DI 11:38
PROVIDERS: ATTEND Physician Assistant
DX: M25.472 Effusion, left ankle (principal); M19.072 Primary osteoarthritis, left ankle and foot; M77.32 Calcaneal spur, left foot

== ENCOUNTER 2023-12-08 10:26 | Emergency (ER) | payer MEDICARE, OTHER ==
[2023-12-08 10:48] VITALS: BP 132/75; O2SAT 97
--- NOTE | 2023-12-08 11:27 | ED Physician Documentation ---
History of Present Illness - Stated complaint Stated Complaint: L FT PX - Chief complaint Chief Complaint: Ext Problem - Additonal information Additional information: 73 yo female With history of osteoporosis presents emergency department for left foot pain. Patient says that about 3 months ago she had worked on her right foot for a corn and then started overcompensating on her left foot and started experiencing left pain of her left foot she went to the walk-in urgent care clinic and had x-rays done and they were benign. They gave her a postop walking shoe which has had little to no relief. About 2 weeks ago she was walking and she tripped over the walkway of her front door and feels like she hyperextended her foot and has been having worsening pain to the medial aspect since then. She says is gotten so bad that she is taken Tylenol and ibuprofen with little to no relief and now she is feeling it when she is lying in bed trying to fall asleep. Pain is worse with any sort of ambulation or weightbearing activity or any gravity. 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 HEENT: Tonsil/Adenoidectomy - Present Medications Home Medications: Ambulatory Orders Medication Instructions Recorded Confirmed Cyclobenzaprine HCl 5 - 10 mg PO TID PRN 07/03/16 06/24/23 Sertraline HCl [Zoloft] 150 mg ORAL DAILY 08/08/16 06/24/23 Famotidine [Pepcid] 20 mg PO DAILY 02/23/20 06/24/23 Hyoscyamine [Levsin] 0.125 mg SL PRN PRN 06/24/23 06/24/23 Montelukast [Singulair] 10 mg PO DAILY 06/24/23 06/24/23 Pantoprazole [Protonix] 40 mg PO DAILY 06/24/23 06/24/23 traZODone [Desyrel] 50 mg PO HS 06/24/23 06/24/23 - Allergies Allergies/Adverse Reactions: Allergies Allergy/AdvReac Type Severity Reaction Status Date / Time No Known Drug Allergies Allergy Verified 12/08/23 10:38 - Social History Does the pt smoke?: No Smoking Status: Never smoker Does the pt drink ETOH?: Yes Does the pt have substance abuse?: No - Immunizations Immunizations are current?: Yes - POLST Patient has POLST: No PD ED PE NORMAL - Vitals Vital signs reviewed: Yes - General General: Alert and oriented X 3, No acute distress, Well developed/nourished - Derm Derm: Normal color, Warm and dry - Extremities Extremities: Other (Left foot: CMS intact, strong dorsalis pedis pulse. Tenderness along the medial portion of the dorsal aspect of her foot. No lateral malleolus tenderness Achilles intact patient has full range of motion of the ankle and able to wiggle all toes.) - Psych Psych: Normal mood Results - Vitals Vitals: Vital Signs - 24 hr 12/08/23 12/08/23 10:38 13:42 Temperature 36.4 C L Heart Rate 89 89 Respiratory 15 15 Rate Blood Pressure 132/75 H 132/75 H O2 Saturation 97 97 Oxygen O2 Source Room air - Rads (name of study) Right foot x-rays Relevant Findings:: Final report received, EMP independent interpretation of test, Other (No acute bony abnormalities, mild scattered degenerative changes throughout the foot) PD Medical Decision Making - ED course ED course: 69-year-old female presents emerged part for left foot pain and tenderness. Pain is mostly to the dorsal medial aspect she is able to ambulate without any difficulty but does endorse and pain. X-rays are complete for further evaluation and do not reveal any acute bony abnormalities or findings she was placed in a walking boot for more support was told to follow-up with podiatry outpatient who she already has care established with at [facility] as well as here in [place]. She is told to continue Tylenol as needed for pain and discomfort and to ease off of the ibuprofen given her age. Return precautions given all questions answered patient safe for discharge at this time. Departure - Departure Disposition: 01 Home, Self Care Clinical Impression: Arthritis of left foot Instructions: ED Joint Pain Comments: Thank you for trusting us with your care. I would follow-up with your computer networker for further evaluation of your ongoing left foot pain. We have placed you in a walking boot to help with the pain that you are experiencing you can take Tylenol for pain and I would also consider taking the Flexeril for a few days to see if this helps. Please come back in if you have any signs or symptoms of infection or any other concerning emergent symptoms. Wishing you a speedy recovery. Forms: PCP List Discharge Date/Time: 12/08/23 13:42
--- NOTE | 2023-12-08 12:42 | XRAY Report ---
PROCEDURE: Foot 3+V LT INDICATIONS: left medial foot pain after fall TECHNIQUE: 3 views of the foot were acquired. COMPARISON: Left ankle radiograph on August 22, 2023. FINDINGS: Bones: No fractures or dislocations. Mild first MTP and diffuse IP joint space narrowing and juxta- articular osteophytosis. Mild midfoot and hindfoot joint space narrowing. No suspicious bony lesions. Soft tissues: No tibiotalar joint effusion. Achilles tendon appears normal. Small plantar and Achi lles calcaneal enthesophytes. IMPRESSION: 1.No acute bony abnormality. If clinical symptoms persist, consider repeat radiograph in 10-14 days v ersus cross-sectional imaging. 2.Mild scattered degenerative changes throughout the foot. Reviewed by: Pedro Kyle MD on 12/08/2023 11:41 AM MAIN Approved by: Pedro Kyle MD on 12/08/2023 11:41 AM MAIN Station ID: [id number]
== END 2023-12-08 13:42 | disposition home or self-care (01) ==
LOC: ED 10:26
DX: M19.072 Primary osteoarthritis, left ankle and foot (principal)
CPT/HCPCS: 99283; 99284

== ENCOUNTER 2023-12-28 13:22 | Outpatient (CLI) | payer MEDICARE, OTHER ==
--- NOTE | 2023-12-30 13:07 | MRI Report ---
PROCEDURE: Ankle LT WO INDICATIONS: L ANKLE INJURY TECHNIQUE: Noncontrast sagittal T1 spin echo and T2 fast spin echo with fat saturation, axial proton density fas t spin echo and T2 fast spin echo with fat saturation, coronal T1 spin echo and T2 fast spin echo wit h fat saturation through the ankle/hindfoot. COMPARISON: None. FINDINGS: Image quality: Excellent. Bones and joints: There is marrow edema involving navicular bone and distal portion of lateral cuneif orm. Subtle linear hypointense signal within proximal navicular bone adjacent to the talonavicular juliana int is seen. No cortical disruption. No other area of abnormal marrow signal. No osteochondral injuri es of talar dome. Osteoarthritic changes are noted throughout midfoot and hindfoot. Small joint effus ion, no loose bodies. Medial structures: The posterior tibialis tendon is thickened at its distal insertion. The flexor di gitorum longus, and flexor hallucis longus tendons are intact. The posterior tibial neurovascular bu ndle appears normal within the tarsal tunnel, without extrinsic mass effect. The deltoid ligament an d spring ligament are grossly intact. Lateral structures: The anterior talofibular, calcaneofibular, and posterior talofibular ligaments a ppear intact. More superiorly, the anterior and posterior tibiofibular ligaments appear normal, as i s the intermalleolar ligament. The tibiofibular syndesmosis is normal in width at 2 mm or less. The peroneus brevis tendon is intact. The peroneus longus tendon is thickened at the level of lateral ma lleolus tip extending to the level of the cuboid. The sinus tarsi demonstrates normal fatty signal, w ithout edema, fibrosis, or cyst formation. Visualized sinus tarsi components (cervical ligament, int erosseous talocalcaneal ligament, roots of the inferior extensor retinaculum) appear normal. Anterior structures: The tibialis anterior, extensor hallucis longus, and extensor digitorum longus tendons appear intact. Posterior and plantar structures: Achilles tendon is intact. Medial and lateral bands of the planta r fascia are of normal thickness. No abductor digiti quinti muscle atrophy to suggest Bermudez neuropa thy. IMPRESSION: 1. Extensive marrow edema throughout navicular bone concerning for subtle incomplete fracture versus contusion. Mild contusion also noted involving distal portion of lateral cuneiform. No displaced frac ture or dislocation. No osteochondral injuries of talar dome. Small joint effusion, no loose bodies. 2. Tendinosis involving distal posterior tibialis tendon near its distal insertion. Tendinosis also s een involving peroneus longus tendon at the level of lateral malleolus tip extending to the level of cuboid. No full-thickness ankle tendon rupture. 3. Medial and lateral ankle ligaments are intact. Reviewed by: Drake Hough MD on 12/30/2023 1:06 PM PDT Approved by: Drake Hough MD on 12/30/2023 1:06 PM PDT Station ID: [id number]
== END 2023-12-28 13:23 | disposition home or self-care (01) ==
LOC: DI 13:22
PROVIDERS: ATTEND Podiatrist
DX: S90.32XA Contusion of left foot, initial encounter (principal); M25.475 Effusion, left foot; M67.874 Other specified disorders of tendon, left ankle and foot